=== PATIENT | female | born 1955 | race Caucasian/White ===

== ENCOUNTER 2019-04-15 11:00 | Inpatient (IN) | payer SELFPAY ==
[2019-04-15] VITALS (13 sets, daily range): BP systolic 75–110; BP diastolic 46–73
[~2019-04-15] VITALS: Ht 160 cm; Wt 71.7 kg
[2019-04-15] MEDS ORDERED: NALOXONE 0.4 MG/ML VIAL. IV PRN (13:45)
[2019-04-15] MEDS: MIDAZOLAM HCL 50 MG in IV NORMAL SALINE 50ML 50 ML IV PRN ×2 (13:57→16:23)
--- NOTE | 2019-04-15 13:59 | PDOC ---
PULMONARY PROGRESS NOTES Vitals Vital Signs Date Time Temp Pulse Resp B/P (MAP) Pulse Ox O2 Delivery O2 Flow Rate FiO2 04/15/19 13:15 100 Ventilator Impression . FULL NOTE DICTATED SEE ODERS RESP FAILURE/AECOPD/PNEUMONIA MILY DURAN MD Apr 15, 2019 13:59
[2019-04-15] MEDS: IV NORMAL SALINE 1000ML BAG 1,000 ML IV SCH (14:06)
--- NOTE | 2019-04-15 14:12 | CONS ---
DATE OF CONSULTATION: 04/15/2019 ATTENDING PHYSICIAN: Gamal Leone MD REASON FOR CONSULTATION: The patient seen in pulmonary consultation at the request of Dr. Leone for respiratory failure, vent management. HISTORY OF PRESENT ILLNESS: The patient is a 63-year-old that presented to [facility], admitted. She was complaining of shortness of breath over the last several days. She is a smoker, smoking half a pack of cigarettes a day, was brought in through the Emergency Room with saturations on room air of 79%. She had a chest x-ray done, revealing basilar airspace opacities. She had an arterial blood gas; pH of 7.32, PaCO2 of 59, pO2 of 65. The patient was admitted to the intensive care unit initially on BiPAP, failed BiPAP. She was intubated. She is now transferred to [place] for further evaluation and management. She is currently on assist control ventilation. She is sedated. PAST MEDICAL HISTORY: Obtained from the current documentation from [facility]. Apparently, she has not seen a doctor for many years. I presume she has underlying COPD. PAST SURGICAL HISTORY: Tubal ligation. FAMILY HISTORY: Unknown. SOCIAL HISTORY: She lives on her own, continues to smoke. REVIEW OF SYSTEMS: Unobtainable secondary to the patient's condition. PHYSICAL EXAMINATION: VITAL SIGNS: Stable. O2 saturation was greater than 92%. HEENT: Eyes: The sclerae were nonicteric. NECK: Jugular venous distention was not elevated. No lymphadenopathy. CHEST: Full expansion. LUNGS: Coarse breath sounds, expiratory wheeze. CARDIOVASCULAR: Regular rate and rhythm with S1, S2, no S3. ABDOMEN: Soft, nontender, nondistended. EXTREMITIES: No clubbing, cyanosis or edema. NEUROLOGIC: The patient was sedated on assist control ventilation. LABORATORY DATA: Chest x-ray from [facility] revealed basilar airspace opacities. White count was 10,000, hemoglobin and hematocrit were noted. Sodium was 140, potassium 4.3, glucose was noted. BNP was 356. IMPRESSION: 1. Acute hypoxemic respiratory failure. 2. Acute exacerbation of chronic obstructive pulmonary disease. 3. Pneumonia, suspect gram-negative, possibly gram-positive. 4. Tobacco dependence. PLAN: 1. Continue current support with assist control ventilation. 2. A.m. ABG and chest x-ray. 3. Solu-Medrol. 4. IV antibiotics. 5. Follow clinical course and make adjustments appropriately. MILY DURAN MD DR: GILL/rajinder JOB#: [id number] / [id number]
--- NOTE | 2019-04-15 14:45 | NUR ---
Patient arrived on unit at 1315, transferred from [facility] via EMS. Patient not adequately sedated, order received for Fentanyl and Versed gtt's from Dr. Robledo. [facility] RN, Cyn- who gave report, stated that the family was notified of patient's transfer to [facility]. Alva catheter, PIV's present upon admission. Patient sedated at this time, belongings in room. See assessments, VS.
[2019-04-15 15:28] LABS: BASE EXCESS ABG -1 mmol/L (-3-3); HCO3 ABG 25 mmol/L (21-28); PCO2 ABG 44 mmHg (35-46); PO2 ABG 150 mmHg (65-108); SAT O2 ABG 99 % (92-99)
[2019-04-15 15:29] LABS: FIO2 ABG 50
[2019-04-15] MEDS: IPRATRPIUM/ALBUTEROL 0.5/2.5MG 3 ML NEBU. NEB SCH (20:07)
[2019-04-16] VITALS (30 sets, daily range): BP systolic 74–138; BP diastolic 49–100
[2019-04-16] MEDS: MIDAZOLAM HCL 50 MG in IV NORMAL SALINE 50ML 50 ML IV PRN ×2 (00:05→14:40)
--- NOTE | 2019-04-16 06:33 | RAD ---
Exam: Chest one view INDICATION: Intubated TECHNIQUE: Frontal view of the chest Comparisons: None FINDINGS: Endotracheal tube with tip approximately 4 cm above the yesy. Enteric tube traverses below the diaphragm, distal extent not visualized. The cardiomediastinal silhouette and pulmonary vessels are within normal limits. The lung and pleural spaces are clear. IMPRESSION: Lines and tubes described above. Electronically signed by: Dain Tellez MD (04/16/2019 6:30 AM) [facility]
[2019-04-16] MEDS: IPRATRPIUM/ALBUTEROL 0.5/2.5MG 3 ML NEBU. NEB SCH ×4 (07:47→19:49)
[2019-04-16] MEDS ORDERED: NOREPINEPHRINE VIAL 8 MG in IV DEXTROSE 5% 250 ML IV PRN (08:00)
[2019-04-16] MEDS ORDERED: IV NORMAL SALINE 1000ML BAG 1,000 ML IV ONE ×2 (08:00)
[2019-04-16] MEDS: IV NORMAL SALINE 1000ML BAG 1,000 ML IV SCH ×5 (08:00→18:00)
[2019-04-16 08:03] LABS: BASE EXCESS ABG -5 mmol/L (-3-3); HCO3 ABG 20 mmol/L (21-28); PCO2 ABG 37 mmHg (35-46); PO2 ABG 151 mmHg (65-108); SAT O2 ABG 99 % (92-99)
[2019-04-16] MEDS: AZITHROMYCIN 250 MG TABLET. PO SCH (09:00)
--- NOTE | 2019-04-16 09:29 | RAD ---
EXAM: Chest, single view. HISTORY: Central line placement. COMPARISON: 04/16/2019 FINDINGS: A frontal view of the chest is obtained. There is no infiltrate, pleural effusion or pneumothorax. The heart is normal in size. There is an endotracheal tube within the mid trachea. There is a nasogastric tube within the stomach. The side-port is likely at the gastroesophageal junction. There is a right internal jugular catheter with the tip in the superior cavoatrial junction. IMPRESSION: 1. Interval placement of a right internal jugular catheter with the tip in the superior cavoatrial junction. 2. Nasogastric tube within the proximal stomach. The side-port appears to be at or near the gastroesophageal junction. There is an endotracheal tube in expected position. Electronically signed by: Airam Padilla MD (04/16/2019 9:26 AM) [facility]
[2019-04-16 09:31] LABS: FIO2 ABG 40
--- NOTE | 2019-04-16 09:56 | PDOC ---
PULMONARY PROGRESS NOTES Subjective remains intubated/ sedated AC mode Vitals Vital Signs Date Time Temp Pulse Resp B/P (MAP) Pulse Ox O2 Delivery O2 Flow Rate FiO2 04/16/19 07:47 99 Ventilator 04/16/19 06:00 90 18 95/76 (82) 04/16/19 04:00 98.9 98.9 Lungs: Wheezing (diffuse) Cardiovascular: S1 Abdomen: Soft Extremities: No Edema Skin: Warm Labs Laboratory Tests Test 04/15/19 15:20 04/15/19 20:45 04/16/19 08:00 O2 Saturation 99 % (92-99) 99 % (92-99) Arterial Blood pH 7.36 (7.35-7.45) 7.35 (7.35-7.45) Arterial Blood pCO2 at Patient Temp 44 mmHg (35-46) 37 mmHg (35-46) Arterial Blood pO2 at Patient Temp 150 mmHg (65-108) 151 mmHg (65-108) Arterial Blood HCO3 25 mmol/L (21-28) 20 mmol/L (21-28) Arterial Blood Base Excess -1 mmol/L (-3-3) -5 mmol/L (-3-3) FiO2 50 40 Lactic Acid Level 1.1 mmol/L (0.4-2.0) Laboratory Tests Test 04/15/19 15:20 04/15/19 20:45 04/16/19 08:00 O2 Saturation 99 % (92-99) 99 % (92-99) Arterial Blood pH 7.36 (7.35-7.45) 7.35 (7.35-7.45) Arterial Blood pCO2 at Patient Temp 44 mmHg (35-46) 37 mmHg (35-46) Arterial Blood pO2 at Patient Temp 150 mmHg (65-108) 151 mmHg (65-108) Arterial Blood HCO3 25 mmol/L (21-28) 20 mmol/L (21-28) Arterial Blood Base Excess -1 mmol/L (-3-3) -5 mmol/L (-3-3) FiO2 50 40 Lactic Acid Level 1.1 mmol/L (0.4-2.0) Comments CXR CLEAR Impression . 1. Acute hypoxemic respiratory failure due to AECOPD 2. Acute exacerbation of chronic obstructive pulmonary disease. 3. Clinical Pneumonia, suspect gram-negative, possibly gram-positive. 4. Tobacco dependence. Plan . 1. Continue current support with assist control ventilation. 2. A.m. ABG and chest x-ray. 3. Solu-Medrol. 4. IV antibiotics. 5. increase nebs q 4hr, add pulmicort not ready to wean till wheezing improve DENISE LEDESMA MD Apr 16, 2019 09:56
[2019-04-16] MEDS: BUDESONIDE 0.5 MG/2 ML NEBU. NEB SCH ×2 (10:00→19:49)
[2019-04-16 10:49] LABS: HEMATOCRIT 37.9 % (36.0-47.0); HEMOGLOBIN 12.3 g/dL (12.0-15.5); RED BLOOD COUNT 3.61 x10^6/uL (3.50-5.40); RED CELL DISTRIBUTION WIDTH 14.4 % (11.5-14.5); WHITE BLOOD COUNT 12.3 x10^3/uL (4.0-11.0)
[2019-04-16 11:20] LABS: ALBUMIN 2.7 g/dL (3.4-5.0); ALBUMIN/GLOBULIN RATIO 0.9 (1.0-1.7); CALCIUM 7.9 mg/dL (8.5-10.1); CREATININE 1.1 mg/dL (0.6-1.0); GFR 50.5; POTASSIUM 4.1 mmol/L (3.5-5.1); TOTAL BILIRUBIN 0.3 mg/dL (0.2-1.0); TOTAL PROTEIN 5.7 g/dL (6.4-8.2)
--- NOTE | 2019-04-16 11:38 | HP ---
ADMIT DATE: 04/16/2019 HISTORY OF PRESENT ILLNESS: The patient is a 63-year-old female patient, who came to the Emergency Room of [facility] with a complaint of shortness of breath that has been going on for a while. Her symptoms improved when she gets her friend's inhaler. She is a smoker, smoking between half a pack to a pack a day. She denied any chest pain or palpitation. She was brought to the Emergency Room by emergency medical service personnel and was given DuoNeb en route. Her oxygen saturation was only 79% on room air, it improved with supplemental oxygen. The patient denied any swelling of the legs. Denied any orthopnea or paroxysmal nocturnal dyspnea. She has had a chest x-ray done, which showed that there is bibasilar lung airspace opacities, likely atelectasis or infiltrate. Costophrenic angles are clear and well demarcated. Her blood gas on admission showed that her pH was 7.32, pCO2 of 59, pO2 of 65, bicarbonate 30. The patient was given Solu-Medrol as well as nebulized albuterol and Atrovent. She was admitted to the ICU where she was continued on BiPAP. Unfortunately, her blood gas repeated early in the morning showed a pH of 7.37, pCO2 of 73, pO2 of 62, bicarbonate 34 and oxygen saturation was ____%. We repeated them again at 06:00 and she continued basically to worsen and therefore, a decision was made to intubate her and she was actually successfully intubated. The endotracheal tube placement was confirmed by clinical examination by capnography and a chest x-ray showed me the tip of the endotracheal tube was above the yesy and was transferred to [facility] ICU to continue mechanical ventilation, antibiotics and steroids as well as bronchodilators and to consult the leadership coach. PAST MEDICAL HISTORY: Unremarkable. Apparently, she has not seen a doctor for years. PAST SURGICAL HISTORY: Significant for tubal ligation. FAMILY HISTORY: Noncontributory. SOCIAL HISTORY: She apparently lives on her own. Her daughter comes and see her every once in a while, brings her food. She continues to smoke; however, she does not drink alcohol or use any recreational drugs. REVIEW OF SYSTEMS: Unobtainable. PHYSICAL EXAMINATION: GENERAL: On examining her on arrival to the Emergency Room there, the patient showed no pallor, jaundice, cyanosis. No lymphadenopathy, no thyromegaly. No jugular venous distension, no limb edema. VITAL SIGNS: Her heart rate was slightly high at 123, blood pressure was 118/80, temperature was 98.2, respiratory rate was 38 and oxygen saturation was 95% on 6 liters of oxygen. HEAD, EYES, EARS, NOSE AND THROAT: Showed normocephalic, atraumatic. NECK: Supple. HEART: Showed normal first and second heart sounds. No gallop or murmur. CHEST: Showed decreased breath sounds bilaterally, but without any wheezing or crepitation. ABDOMEN: Distended, soft, nontender. LABORATORY DATA: As I stated, she was extensively investigated there. Her EKG showed that she has sinus tachycardia with a heart rate of 112 beats per minute with a corrected QT interval of 507 milliseconds, no ST segment elevation. Her chest x-ray showed she has mild bibasilar lung airspace opacities, likely atelectasis or infiltrate. ASSESSMENT AND PLAN: The patient was basically admitted to the ICU, started on BiPAP; however, her blood gas continued to deteriorate, such that she intubated her and mechanically ventilated. When I examined her, she was resting flat in bed, in no apparent distress. She continued to be intubated, mechanically ventilated and sedated. ____ PHYSICAL EXAMINATION: GENERAL: There was no pallor, jaundice, cyanosis or thyromegaly. No jugular venous distension. No lower limb edema. VITAL SIGNS: Her heart rate was 90, blood pressure was 95/76, temperature was 98.9, respiratory rate was 18, and oxygen saturation was 100% on FiO2 of 40%. HEAD, EYES, EARS, NOSE, AND THROAT: Showed normocephalic, atraumatic. She has orotracheal and orogastric tube in place. NECK: Supple. HEART: Showed normal first and second heart sounds. No gallop or murmur CHEST: Showed central trachea, equally reduced expansion, reduced air entry with marked expiratory and inspiratory wheezing. ABDOMEN: Slightly distended, soft, nontender. NEUROLOGIC: She is heavily sedated. EXTREMITIES: She moves all extremities spontaneously. LABORATORY DATA: Her lab work this morning showed a pH of 7.36, pCO2 of 44, pO2 of 150, bicarbonate 25, and oxygen saturation was 99% on FiO2 of 40%. Lactic acid was 1.1. IMPRESSION: In summary, this is a 63-year-old female patient, who came in with: 1. Acute hypoxic hypercapnic respiratory failure, requiring eventual intubation and mechanical ventilation. 2. Chronic obstructive pulmonary disease exacerbation. 3. Probably community-acquired pneumonia. PLAN: To continue mechanical ventilation and wean as tolerated. Continue with IV antibiotic. Continue with IV Solu-Medrol as well as nebulized albuterol and Atrovent. Continue with sedation with Versed and propofol. We will consult the leadership coach and decide on further management accordingly. MELANI SANTOS MD DR: JOSEPH/rajinder JOB#: [id number] / [id number]
[2019-04-16] MEDS: methylPREDNISolone SOD SUCC PF 40 MG/ML VIAL. IV SCH ×3 (11:58→18:00)
[2019-04-16] MEDS: cefTRIAXone IV Push 1 GM VIAL. IVP SCH (12:01)
[2019-04-16] MEDS ORDERED: PROPOFOL 100 ML IV ONE (13:58)
--- NOTE | 2019-04-16 16:23 | NUR ---
SS following for discharge planning. SS reviewed pt chart. Pt is self pay pt. HCFS following for self pay status. Pt is from home and is currently on the vent. SS will continue to follow for discharge planning.
[2019-04-17] VITALS (24 sets, daily range): BP systolic 97–168; BP diastolic 56–104
[2019-04-17] MEDS: IPRATRPIUM/ALBUTEROL 0.5/2.5MG 3 ML NEBU. NEB SCH ×7 (00:08→23:55)
[2019-04-17] MEDS: methylPREDNISolone SOD SUCC PF 40 MG/ML VIAL. IV SCH ×5 (00:09→23:59)
[2019-04-17] MEDS: MIDAZOLAM HCL 50 MG in IV NORMAL SALINE 50ML 50 ML IV PRN (00:31)
[2019-04-17] MEDS: IV NORMAL SALINE 1000ML BAG 1,000 ML IV SCH ×3 (05:52→17:47)
[2019-04-17 06:16] LABS: ALBUMIN 2.5 g/dL (3.4-5.0); ALBUMIN/GLOBULIN RATIO 0.7 (1.0-1.7); CALCIUM 8.1 mg/dL (8.5-10.1); CREATININE 0.8 mg/dL (0.6-1.0); GFR 72.9; POTASSIUM 4.2 mmol/L (3.5-5.1); TOTAL BILIRUBIN 0.4 mg/dL (0.2-1.0); TOTAL PROTEIN 5.9 g/dL (6.4-8.2)
[2019-04-17 06:21] LABS: HEMATOCRIT 36.5 % (36.0-47.0); HEMOGLOBIN 12.2 g/dL (12.0-15.5); RED BLOOD COUNT 3.49 x10^6/uL (3.50-5.40); RED CELL DISTRIBUTION WIDTH 14.5 % (11.5-14.5); WHITE BLOOD COUNT 9.3 x10^3/uL (4.0-11.0)
[2019-04-17] MEDS: BUDESONIDE 0.5 MG/2 ML NEBU. NEB SCH ×2 (07:46→19:38)
[2019-04-17 07:59] LABS: BASE EXCESS ABG -3 mmol/L (-3-3); HCO3 ABG 22 mmol/L (21-28); PCO2 ABG 40 mmHg (35-46); PO2 ABG 102 mmHg (65-108); SAT O2 ABG 97 % (92-99)
[2019-04-17 08:01] LABS: FIO2 ABG 35
[2019-04-17] MEDS: cefTRIAXone IV Push 1 GM VIAL. IVP SCH (08:03)
--- NOTE | 2019-04-17 08:05 | RAD ---
EXAM: CHEST ONE VIEW. HISTORY: Respiratory failure, intubated. COMPARISON: 04/16/2019. FINDINGS: A frontal view of the chest is obtained. An endotracheal tube has its tip 6.5 cm above the yesy. A nasogastric tube has its tip below the inferior margin of the view. The lungs are expanded to the 11th posterior interspaces. There are no confluent infiltrates. An opacity in the right cardiophrenic angle is likely a fat pad. There is no pneumothorax or pleural effusion. The heart is not enlarged. IMPRESSION: 1. Hyperinflation. Correlate for air trapping. No confluent infiltrates. Electronically signed by: Mychal Noble MD (04/17/2019 8:02 AM) [facility]
[2019-04-17] MEDS: AZITHROMYCIN 250 MG TABLET. PO SCH (08:18)
--- NOTE | 2019-04-17 10:58 | PN ---
DATE: 04/17/2019 SUBJECTIVE: The patient continued to be intubated and mechanically ventilated. She continued to be on Levophed and her sedation was just now turned off. She is maintaining her oxygen saturation at 100% on FiO2 of 35%. PHYSICAL EXAMINATION: GENERAL: When I examined her, she looked somewhat pale. No jaundice, cyanosis, or thyromegaly. No jugular venous distension. No lower limb edema. VITAL SIGNS: Her heart rate was 65, blood pressure was 137/76, her temperature was 98.6, respiratory rate was 16, and oxygen saturation was 98%. HEAD, EYES, EARS, NOSE AND THROAT: Showed normocephalic, atraumatic. She has orotracheal and orogastric tube in place. NECK: Supple. HEART: Showed normal first and second heart sounds with no gallop, rub or murmur. CHEST: Showed central trachea, equal bilateral chest expansion, air entry with vesicular breath sounds with wheezing bilaterally though much less than yesterday. ABDOMEN: Slightly distended, soft, nontender. NEUROLOGIC: She was sedated. Her intake and output are incompletely recorded. LABORATORY DATA: Her lab work this morning showed a white cell count 9300, hemoglobin 12.2, hematocrit 36, MCV 104 and platelet count 102,000. Her chemistry showed a serum sodium 142, potassium 4.2, chloride 110, bicarbonate 27, anion gap of 5, BUN 27, creatinine 0.8, estimated GFR was 73 mL per minute. Her glucose was 124, calcium was 8.1. Total bilirubin, AST, ALT, alkaline phosphatase were normal. Total protein was 5.9, albumin was 2.5. Her blood gases this morning showed a pH of 7.37, pCO2 of 40, pO2 of 102, bicarbonate was 22 and oxygen saturation was 97% on FiO2 of 35%. ASSESSMENT: 1. Acute hypoxic hypercapnic respiratory failure for which she required intubation and mechanical ventilation. 2. Chronic obstructive pulmonary disease exacerbation. 3. Probably community-acquired pneumonia. 4. Tobacco use disorder. PLAN: To continue mechanical ventilation, wean as tolerated. Continue with IV antibiotic. Continue with IV Solu-Medrol as well as nebulized albuterol and Atrovent. She continues to be on Levophed; however, her sedation is turned off and she might be considered to weaning trial today. MELANI SANTOS MD DR: Sagar JOB#: [id number] / [id number]
--- NOTE | 2019-04-17 12:41 | PDOC ---
PULMONARY PROGRESS NOTES Subjective remains intubated/ sedated AC mode Vitals Vital Signs Date Time Temp Pulse Resp B/P (MAP) Pulse Ox O2 Delivery O2 Flow Rate FiO2 04/17/19 11:00 97 18 135/79 (97) 95 Ventilator 04/17/19 08:00 98.5 98.5 Lungs: Wheezing (diffuse) Cardiovascular: S1 Abdomen: Soft Extremities: No Edema Skin: Warm Labs Laboratory Tests Test 04/15/19 15:20 04/15/19 20:45 04/16/19 08:00 04/16/19 10:30 O2 Saturation 99 % (92-99) 99 % (92-99) Arterial Blood pH 7.36 (7.35-7.45) 7.35 (7.35-7.45) Arterial Blood pCO2 at Patient Temp 44 mmHg (35-46) 37 mmHg (35-46) Arterial Blood pO2 at Patient Temp 150 mmHg (65-108) 151 mmHg (65-108) Arterial Blood HCO3 25 mmol/L (21-28) 20 mmol/L (21-28) Arterial Blood Base Excess -1 mmol/L (-3-3) -5 mmol/L (-3-3) FiO2 50 40 Lactic Acid Level 1.1 mmol/L (0.4-2.0) White Blood Count 12.3 x10^3/uL (4.0-11.0) Red Blood Count 3.61 x10^6/uL (3.50-5.40) Hemoglobin 12.3 g/dL (12.0-15.5) Hematocrit 37.9 % (36.0-47.0) Mean Corpuscular Volume 105 fL (79-100) Mean Corpuscular Hemoglobin 34 pg (25-35) Mean Corpuscular Hemoglobin Concent 32 g/dL (31-37) Red Cell Distribution Width 14.4 % (11.5-14.5) Platelet Count 194 x10^3/uL (140-400) Sodium Level 142 mmol/L (136-145) Potassium Level 4.1 mmol/L (3.5-5.1) Chloride Level 109 mmol/L (98-107) Carbon Dioxide Level 27 mmol/L (21-32) Anion Gap 6 (6-14) Blood Urea Nitrogen 32 mg/dL (7-20) Creatinine 1.1 mg/dL (0.6-1.0) Estimated GFR (Cockcroft-Gault) 50.5 BUN/Creatinine Ratio 29 (6-20) Glucose Level 96 mg/dL (70-99) Calcium Level 7.9 mg/dL (8.5-10.1) Total Bilirubin 0.3 mg/dL (0.2-1.0) Aspartate Amino Transf (AST/SGOT) 15 U/L (15-37) Alanine Aminotransferase (ALT/SGPT) 14 U/L (14-59) Alkaline Phosphatase 55 U/L (46-116) Total Protein 5.7 g/dL (6.4-8.2) Albumin 2.7 g/dL (3.4-5.0) Albumin/Globulin Ratio 0.9 (1.0-1.7) Test 04/17/19 00:07 04/17/19 05:45 04/17/19 05:49 04/17/19 07:59 Glucose (Fingerstick) 97 mg/dL (70-99) 114 mg/dL (70-99) White Blood Count 9.3 x10^3/uL (4.0-11.0) Red Blood Count 3.49 x10^6/uL (3.50-5.40) Hemoglobin 12.2 g/dL (12.0-15.5) Hematocrit 36.5 % (36.0-47.0) Mean Corpuscular Volume 104 fL (79-100) Mean Corpuscular Hemoglobin 35 pg (25-35) Mean Corpuscular Hemoglobin Concent 33 g/dL (31-37) Red Cell Distribution Width 14.5 % (11.5-14.5) Platelet Count 182 x10^3/uL (140-400) Sodium Level 142 mmol/L (136-145) Potassium Level 4.2 mmol/L (3.5-5.1) Chloride Level 110 mmol/L (98-107) Carbon Dioxide Level 27 mmol/L (21-32) Anion Gap 5 (6-14) Blood Urea Nitrogen 27 mg/dL (7-20) Creatinine 0.8 mg/dL (0.6-1.0) Estimated GFR (Cockcroft-Gault) 72.9 BUN/Creatinine Ratio 34 (6-20) Glucose Level 124 mg/dL (70-99) Calcium Level 8.1 mg/dL (8.5-10.1) Total Bilirubin 0.4 mg/dL (0.2-1.0) Aspartate Amino Transf (AST/SGOT) 13 U/L (15-37) Alanine Aminotransferase (ALT/SGPT) 12 U/L (14-59) Alkaline Phosphatase 55 U/L (46-116) Total Protein 5.9 g/dL (6.4-8.2) Albumin 2.5 g/dL (3.4-5.0) Albumin/Globulin Ratio 0.7 (1.0-1.7) O2 Saturation 97 % (92-99) Arterial Blood pH 7.37 (7.35-7.45) Arterial Blood pCO2 at Patient Temp 40 mmHg (35-46) Arterial Blood pO2 at Patient Temp 102 mmHg (65-108) Arterial Blood HCO3 22 mmol/L (21-28) Arterial Blood Base Excess -3 mmol/L (-3-3) FiO2 35 Laboratory Tests Test 04/17/19 00:07 04/17/19 05:45 04/17/19 05:49 04/17/19 07:59 Glucose (Fingerstick) 97 mg/dL (70-99) 114 mg/dL (70-99) White Blood Count 9.3 x10^3/uL (4.0-11.0) Red Blood Count 3.49 x10^6/uL (3.50-5.40) Hemoglobin 12.2 g/dL (12.0-15.5) Hematocrit 36.5 % (36.0-47.0) Mean Corpuscular Volume 104 fL (79-100) Mean Corpuscular Hemoglobin 35 pg (25-35) Mean Corpuscular Hemoglobin Concent 33 g/dL (31-37) Red Cell Distribution Width 14.5 % (11.5-14.5) Platelet Count 182 x10^3/uL (140-400) Sodium Level 142 mmol/L (136-145) Potassium Level 4.2 mmol/L (3.5-5.1) Chloride Level 110 mmol/L (98-107) Carbon Dioxide Level 27 mmol/L (21-32) Anion Gap 5 (6-14) Blood Urea Nitrogen 27 mg/dL (7-20) Creatinine 0.8 mg/dL (0.6-1.0) Estimated GFR (Cockcroft-Gault) 72.9 BUN/Creatinine Ratio 34 (6-20) Glucose Level 124 mg/dL (70-99) Calcium Level 8.1 mg/dL (8.5-10.1) Total Bilirubin 0.4 mg/dL (0.2-1.0) Aspartate Amino Transf (AST/SGOT) 13 U/L (15-37) Alanine Aminotransferase (ALT/SGPT) 12 U/L (14-59) Alkaline Phosphatase 55 U/L (46-116) Total Protein 5.9 g/dL (6.4-8.2) Albumin 2.5 g/dL (3.4-5.0) Albumin/Globulin Ratio 0.7 (1.0-1.7) O2 Saturation 97 % (92-99) Arterial Blood pH 7.37 (7.35-7.45) Arterial Blood pCO2 at Patient Temp 40 mmHg (35-46) Arterial Blood pO2 at Patient Temp 102 mmHg (65-108) Arterial Blood HCO3 22 mmol/L (21-28) Arterial Blood Base Excess -3 mmol/L (-3-3) FiO2 35 Medications Active Scripts Medications Dose Route/Sig Max Daily Dose Days Date Category No Known Medications Prior To Admisstion (Info) Each 1 Each 1X PRN 04/17/19 Reported Comments CXR CLEAR Impression . 1. Acute hypoxemic respiratory failure due to AECOPD 2. Acute exacerbation of chronic obstructive pulmonary disease. 3. Clinical Pneumonia, suspect gram-negative, possibly gram-positive. 4. Tobacco dependence. Plan . 1. Continue current support with assist control ventilation. wheezing resolved 2. will dc sedation and start CPAP trial once awake 3. Solu-Medrol. 4. IV antibiotics. 5. nebs q 4hr, pulmicort 6. TF 7. DVT/ Stress ulcer prophDENISE Tilley MD Apr 17, 2019 12:41
[2019-04-17 13:08] LABS: BASE EXCESS ABG -2 mmol/L (-3-3); HCO3 ABG 25 mmol/L (21-28); PCO2 ABG 50 mmHg (35-46); PO2 ABG 73 mmHg (65-108); SAT O2 ABG 94 % (92-99)
[2019-04-17 13:26] LABS: FIO2 ABG 35
[2019-04-17] MEDS ORDERED: PROPOFOL 100 ML IV PRN (13:45)
[2019-04-17] MEDS: ENOXAPARIN 40 MG/0.4 ML SYRINGE. SQ SCH (13:51)
[2019-04-17 17:11] LABS: BASE EXCESS ABG -2 mmol/L (-3-3); HCO3 ABG 25 mmol/L (21-28); PCO2 ABG 52 mmHg (35-46); PO2 ABG 100 mmHg (65-108); SAT O2 ABG 97 % (92-99)
[2019-04-17 17:17] LABS: FIO2 ABG 40% BIPAP
--- NOTE | 2019-04-17 19:00 | NUR ---
EOSS patient extubated self placed on bi-pap abg called to Dr. Diaz changes made per bi-pap will repeat abg around 1924, patient confused,pulling on bipap, mitts remain on. encouraged not to pull on mask.will moniter closely.
[2019-04-17 19:35] LABS: BASE EXCESS ABG -2 mmol/L (-3-3); HCO3 ABG 25 mmol/L (21-28); PCO2 ABG 53 mmHg (35-46); PO2 ABG 73 mmHg (65-108); SAT O2 ABG 93 % (92-99)
[2019-04-17 19:39] LABS: FIO2 ABG 30
[2019-04-17] MEDS ORDERED: ATROPINE 0.5 MG/5 ML DISP.SYRINGE. IV PRN (19:45)
[2019-04-17] MEDS ORDERED: IV NORMAL SALINE 500ML BAG 500 ML IV PRN (19:45)
[2019-04-17] MEDS ORDERED: SODIUM BICARB ADULT 8.4% 50 MEQ/50 ML DISP.SYRIN. IV ONE (19:45)
[2019-04-17] MEDS: DEXMEDETOMIDINE 400 MCG in IV NORMAL SALINE 100ML 96 ML IV PRN (20:03)
[2019-04-17] MEDS: FAMOTIDINE 20 MG/2 ML VIAL IVP SCH (20:38)
[2019-04-18] VITALS (24 sets, daily range): BP systolic 140–171; BP diastolic 86–115
[2019-04-18] MEDS: IV NORMAL SALINE 1000ML BAG 1,000 ML IV SCH ×5 (02:07→21:38)
[2019-04-18] MEDS ORDERED: HALOPERIDOL LACTATE 5 MG/ML VIAL. IVP PRN ×2 (04:00→04:15)
[2019-04-18] MEDS: IPRATRPIUM/ALBUTEROL 0.5/2.5MG 3 ML NEBU. NEB SCH ×5 (04:35→20:51)
[2019-04-18] MEDS: methylPREDNISolone SOD SUCC PF 40 MG/ML VIAL. IV SCH ×3 (05:53→17:23)
[2019-04-18] MEDS: HALOPERIDOL LACTATE 5 MG/ML VIAL. IVP PRN ×3 (06:01→21:38)
[2019-04-18 06:24] LABS: HEMATOCRIT 36.8 % (36.0-47.0); HEMOGLOBIN 12.4 g/dL (12.0-15.5); RED BLOOD COUNT 3.56 x10^6/uL (3.50-5.40); RED CELL DISTRIBUTION WIDTH 14.3 % (11.5-14.5); WHITE BLOOD COUNT 8.6 x10^3/uL (4.0-11.0)
--- NOTE | 2019-04-18 06:36 | RAD ---
Exam: Chest one view INDICATION: Respiratory failure TECHNIQUE: Frontal view of chest Comparisons: 04/17/2019 FINDINGS: Right IJ catheter with tip in the SVC. The cardiomediastinal silhouette and pulmonary vessels are within normal limits. The lung and pleural spaces are clear. IMPRESSION: No acute cardiopulmonary process. Electronically signed by: Dain Tellez MD (04/18/2019 6:33 AM) [facility]
[2019-04-18 06:42] LABS: ALBUMIN 2.8 g/dL (3.4-5.0); ALBUMIN/GLOBULIN RATIO 0.8 (1.0-1.7); CALCIUM 8.3 mg/dL (8.5-10.1); CREATININE 0.8 mg/dL (0.6-1.0); GFR 72.9; TOTAL BILIRUBIN 0.5 mg/dL (0.2-1.0); TOTAL PROTEIN 6.4 g/dL (6.4-8.2)
[2019-04-18] MEDS: BUDESONIDE 0.5 MG/2 ML NEBU. NEB SCH ×2 (07:36→20:52)
[2019-04-18 07:59] LABS: BASE EXCESS ABG -2 mmol/L (-3-3); HCO3 ABG 24 mmol/L (21-28); PCO2 ABG 46 mmHg (35-46); PO2 ABG 89 mmHg (65-108); SAT O2 ABG 96 % (92-99)
[2019-04-18 08:00] LABS: FIO2 ABG 30
[2019-04-18] MEDS: cefTRIAXone IV Push 1 GM VIAL. IVP SCH (08:21)
[2019-04-18] MEDS ORDERED: OLANZapine IM 10 MG VIAL. IM ONE (08:30)
[2019-04-18] MEDS: AZITHROMYCIN 250 MG TABLET. PO SCH (09:00)
[2019-04-18] MEDS: ALBUTEROL SULFATE 2.5 MG/3 ML NEBU. NEB PRN (10:00)
--- NOTE | 2019-04-18 10:29 | PN ---
DATE: 04/18/2019 SUBJECTIVE: The patient has apparently self-extubated yesterday and has been extremely restless, agitated, for which she was given Haldol. She was apparently on propofol; however, she became bradycardic and therefore, she was given Haldol that was increased this morning. She is now on AVAP maintaining her oxygen saturation at 97% on FiO2 of 30%. PHYSICAL EXAMINATION: GENERAL: When I examined her, she was resting slightly propped up, continued to be somewhat restless, agitated. There was no pallor, jaundice, cyanosis or thyromegaly. No jugular venous distention. No limb edema. VITAL SIGNS: Her heart rate was 100, blood pressure was 161/97, temperature was 97.5, respiratory rate was 25, and oxygen saturation was 96%. HEAD, EYES, EARS, NOSE AND THROAT: Showed normocephalic, atraumatic. NECK: Supple. CARDIAC: Normal first and second heart sounds. No gallop, rub or murmur. CHEST: Clear to auscultation. No crepitation or rhonchi. Chest shows central trachea, equally reduced expansion, reduced air entry, vesicular sounds with few bilateral scattered rhonchi. I could not appreciate any crepitation. ABDOMEN: Distended, soft, nontender. NEUROLOGIC: She has continued to be restless, agitated. Her intake over the last 24 hours was 4700, output was 780. LABORATORY DATA: As of this morning, her white cell count was 8600, hemoglobin 12.4, hematocrit 36.8, MCV 103 and platelet count 155,000. Her serum sodium was 147, potassium 4, chloride 112, bicarbonate 28, anion gap of 7, BUN 30, creatinine was 0.8, estimated GFR was 73 mL per minute. Her blood glucose 146, calcium was 8.3. Total bilirubin, AST, ALT, alkaline phosphatase were normal. Total protein 6.4, albumin 2.8. ASSESSMENT: 1. Acute on chronic hypoxic hypercapnic respiratory failure for which she required intubation, mechanical ventilation; however, the patient has extubated herself yesterday. 2. Chronic obstructive pulmonary disease exacerbation. 3. Probably community-acquired pneumonia. 4. Tobacco use disorder. PLAN: Continue with AVAP. Continue with IV fluid as well as IV Solu-Medrol, nebulized albuterol and Atrovent. MELANI SANTOS MD DR: Sagar JOB#: [id number] / [id number]
[2019-04-18] MEDS: NICOTINE 21MG PATCH. TD SCH (10:50)
--- NOTE | 2019-04-18 11:06 | PDOC ---
PULMONARY PROGRESS NOTES Subjective self extubated 04/17 afternoon required BIPAP , precedex, now off Vitals Vital Signs Date Time Temp Pulse Resp B/P (MAP) Pulse Ox O2 Delivery O2 Flow Rate FiO2 04/18/19 10:19 97 24 142/99 (113) 98 Nasal Cannula 2.0 04/18/19 07:28 97.5 97.5 General: Lethargic Lungs: Wheezing Cardiovascular: S1 Abdomen: Soft Extremities: No Edema Skin: Warm Labs Laboratory Tests Test 04/17/19 00:07 04/17/19 05:45 04/17/19 05:49 04/17/19 07:59 Glucose (Fingerstick) 97 mg/dL (70-99) 114 mg/dL (70-99) White Blood Count 9.3 x10^3/uL (4.0-11.0) Red Blood Count 3.49 x10^6/uL (3.50-5.40) Hemoglobin 12.2 g/dL (12.0-15.5) Hematocrit 36.5 % (36.0-47.0) Mean Corpuscular Volume 104 fL (79-100) Mean Corpuscular Hemoglobin 35 pg (25-35) Mean Corpuscular Hemoglobin Concent 33 g/dL (31-37) Red Cell Distribution Width 14.5 % (11.5-14.5) Platelet Count 182 x10^3/uL (140-400) Sodium Level 142 mmol/L (136-145) Potassium Level 4.2 mmol/L (3.5-5.1) Chloride Level 110 mmol/L (98-107) Carbon Dioxide Level 27 mmol/L (21-32) Anion Gap 5 (6-14) Blood Urea Nitrogen 27 mg/dL (7-20) Creatinine 0.8 mg/dL (0.6-1.0) Estimated GFR (Cockcroft-Gault) 72.9 BUN/Creatinine Ratio 34 (6-20) Glucose Level 124 mg/dL (70-99) Calcium Level 8.1 mg/dL (8.5-10.1) Total Bilirubin 0.4 mg/dL (0.2-1.0) Aspartate Amino Transf (AST/SGOT) 13 U/L (15-37) Alanine Aminotransferase (ALT/SGPT) 12 U/L (14-59) Alkaline Phosphatase 55 U/L (46-116) Total Protein 5.9 g/dL (6.4-8.2) Albumin 2.5 g/dL (3.4-5.0) Albumin/Globulin Ratio 0.7 (1.0-1.7) O2 Saturation 97 % (92-99) Arterial Blood pH 7.37 (7.35-7.45) Arterial Blood pCO2 at Patient Temp 40 mmHg (35-46) Arterial Blood pO2 at Patient Temp 102 mmHg (65-108) Arterial Blood HCO3 22 mmol/L (21-28) Arterial Blood Base Excess -3 mmol/L (-3-3) FiO2 35 Test 04/17/19 12:55 04/17/19 16:46 04/17/19 19:33 04/18/19 06:10 O2 Saturation 94 % (92-99) 97 % (92-99) 93 % (92-99) Arterial Blood pH 7.31 (7.35-7.45) 7.30 (7.35-7.45) 7.29 (7.35-7.45) Arterial Blood pCO2 at Patient Temp 50 mmHg (35-46) 52 mmHg (35-46) 53 mmHg (35-46) Arterial Blood pO2 at Patient Temp 73 mmHg (65-108) 100 mmHg (65-108) 73 mmHg (65-108) Arterial Blood HCO3 25 mmol/L (21-28) 25 mmol/L (21-28) 25 mmol/L (21-28) Arterial Blood Base Excess -2 mmol/L (-3-3) -2 mmol/L (-3-3) -2 mmol/L (-3-3) FiO2 35 40% bipap 30 White Blood Count 8.6 x10^3/uL (4.0-11.0) Red Blood Count 3.56 x10^6/uL (3.50-5.40) Hemoglobin 12.4 g/dL (12.0-15.5) Hematocrit 36.8 % (36.0-47.0) Mean Corpuscular Volume 103 fL (79-100) Mean Corpuscular Hemoglobin 35 pg (25-35) Mean Corpuscular Hemoglobin Concent 34 g/dL (31-37) Red Cell Distribution Width 14.3 % (11.5-14.5) Platelet Count 155 x10^3/uL (140-400) Sodium Level 147 mmol/L (136-145) Potassium Level 4.0 mmol/L (3.5-5.1) Chloride Level 112 mmol/L (98-107) Carbon Dioxide Level 28 mmol/L (21-32) Anion Gap 7 (6-14) Blood Urea Nitrogen 30 mg/dL (7-20) Creatinine 0.8 mg/dL (0.6-1.0) Estimated GFR (Cockcroft-Gault) 72.9 BUN/Creatinine Ratio 38 (6-20) Glucose Level 146 mg/dL (70-99) Calcium Level 8.3 mg/dL (8.5-10.1) Total Bilirubin 0.5 mg/dL (0.2-1.0) Aspartate Amino Transf (AST/SGOT) 25 U/L (15-37) Alanine Aminotransferase (ALT/SGPT) 20 U/L (14-59) Alkaline Phosphatase 61 U/L (46-116) Total Protein 6.4 g/dL (6.4-8.2) Albumin 2.8 g/dL (3.4-5.0) Albumin/Globulin Ratio 0.8 (1.0-1.7) Test 04/18/19 07:50 O2 Saturation 96 % (92-99) Arterial Blood pH 7.34 (7.35-7.45) Arterial Blood pCO2 at Patient Temp 46 mmHg (35-46) Arterial Blood pO2 at Patient Temp 89 mmHg (65-108) Arterial Blood HCO3 24 mmol/L (21-28) Arterial Blood Base Excess -2 mmol/L (-3-3) FiO2 30 Laboratory Tests Test 04/17/19 12:55 04/17/19 16:46 04/17/19 19:33 04/18/19 06:10 O2 Saturation 94 % (92-99) 97 % (92-99) 93 % (92-99) Arterial Blood pH 7.31 (7.35-7.45) 7.30 (7.35-7.45) 7.29 (7.35-7.45) Arterial Blood pCO2 at Patient Temp 50 mmHg (35-46) 52 mmHg (35-46) 53 mmHg (35-46) Arterial Blood pO2 at Patient Temp 73 mmHg (65-108) 100 mmHg (65-108) 73 mmHg (65-108) Arterial Blood HCO3 25 mmol/L (21-28) 25 mmol/L (21-28) 25 mmol/L (21-28) Arterial Blood Base Excess -2 mmol/L (-3-3) -2 mmol/L (-3-3) -2 mmol/L (-3-3) FiO2 35 40% bipap 30 White Blood Count 8.6 x10^3/uL (4.0-11.0) Red Blood Count 3.56 x10^6/uL (3.50-5.40) Hemoglobin 12.4 g/dL (12.0-15.5) Hematocrit 36.8 % (36.0-47.0) Mean Corpuscular Volume 103 fL (79-100) Mean Corpuscular Hemoglobin 35 pg (25-35) Mean Corpuscular Hemoglobin Concent 34 g/dL (31-37) Red Cell Distribution Width 14.3 % (11.5-14.5) Platelet Count 155 x10^3/uL (140-400) Sodium Level 147 mmol/L (136-145) Potassium Level 4.0 mmol/L (3.5-5.1) Chloride Level 112 mmol/L (98-107) Carbon Dioxide Level 28 mmol/L (21-32) Anion Gap 7 (6-14) Blood Urea Nitrogen 30 mg/dL (7-20) Creatinine 0.8 mg/dL (0.6-1.0) Estimated GFR (Cockcroft-Gault) 72.9 BUN/Creatinine Ratio 38 (6-20) Glucose Level 146 mg/dL (70-99) Calcium Level 8.3 mg/dL (8.5-10.1) Total Bilirubin 0.5 mg/dL (0.2-1.0) Aspartate Amino Transf (AST/SGOT) 25 U/L (15-37) Alanine Aminotransferase (ALT/SGPT) 20 U/L (14-59) Alkaline Phosphatase 61 U/L (46-116) Total Protein 6.4 g/dL (6.4-8.2) Albumin 2.8 g/dL (3.4-5.0) Albumin/Globulin Ratio 0.8 (1.0-1.7) Test 04/18/19 07:50 O2 Saturation 96 % (92-99) Arterial Blood pH 7.34 (7.35-7.45) Arterial Blood pCO2 at Patient Temp 46 mmHg (35-46) Arterial Blood pO2 at Patient Temp 89 mmHg (65-108) Arterial Blood HCO3 24 mmol/L (21-28) Arterial Blood Base Excess -2 mmol/L (-3-3) FiO2 30 Medications Active Scripts Medications Dose Route/Sig Max Daily Dose Days Date Category No Known Medications Prior To Admisstion (Info) Each 1 Each MC 1X PRN 04/17/19 Reported Comments CXR 04/18 mild left lung inf Impression . 1. Acute hypoxemic respiratory failure due to AECOPD, self extubated 04/17 2. Acute exacerbation of chronic obstructive pulmonary disease. 3. Clinical Pneumonia, suspect gram-negative, possibly gram-positive. 4. Tobacco dependence. 5. Anxiety disorder Plan . 1. Continue current VM, PRN BIPAP, MENTAL STATUS IMPROVING 2. follow clinically 3. Solu-Medrol. 4. IV antibiotics. 5. nebs q 4hr, pulmicort 6. TF 7. DVT/ Stress ulcer prophy 8. d/w family about advance directives. full code DENISE LEDESMA MD Apr 18, 2019 11:06
[2019-04-18] MEDS: ENOXAPARIN 40 MG/0.4 ML SYRINGE. SQ SCH (11:48)
[2019-04-18] MEDS: DEXMEDETOMIDINE 400 MCG in IV NORMAL SALINE 100ML 96 ML IV PRN ×2 (13:51→19:37)
[2019-04-18 17:27] LABS: BASE EXCESS ABG -3 mmol/L (-3-3); HCO3 ABG 22 mmol/L (21-28); PCO2 ABG 37 mmHg (35-46); PO2 ABG 88 mmHg (65-108); SAT O2 ABG 97 % (92-99)
[2019-04-18 17:31] LABS: FIO2 ABG 30
[2019-04-18] MEDS: FAMOTIDINE 20 MG/2 ML VIAL IVP SCH (21:38)
[2019-04-18] MEDS ORDERED: hydrALAZINE 20 MG/ML VIAL. IVP PRN (23:00)
[2019-04-19] VITALS (22 sets, daily range): BP systolic 116–163; BP diastolic 72–106
[2019-04-19] MEDS: methylPREDNISolone SOD SUCC PF 40 MG/ML VIAL. IV SCH ×4 (00:07→17:10)
[2019-04-19] MEDS: IPRATRPIUM/ALBUTEROL 0.5/2.5MG 3 ML NEBU. NEB SCH ×7 (00:20→23:42)
[2019-04-19] MEDS: HALOPERIDOL LACTATE 5 MG/ML VIAL. IVP PRN ×3 (03:22→21:01)
[2019-04-19] MEDS: DEXMEDETOMIDINE 400 MCG in IV NORMAL SALINE 100ML 96 ML IV PRN ×2 (03:22→17:20)
[2019-04-19 05:53] LABS: CALCIUM 8.3 mg/dL (8.5-10.1); CREATININE 0.7 mg/dL (0.6-1.0); GFR 85.1; POTASSIUM 3.6 mmol/L (3.5-5.1)
[2019-04-19 06:06] LABS: HEMATOCRIT 37.5 % (36.0-47.0); HEMOGLOBIN 12.5 g/dL (12.0-15.5); RED BLOOD COUNT 3.62 x10^6/uL (3.50-5.40); RED CELL DISTRIBUTION WIDTH 14.3 % (11.5-14.5); WHITE BLOOD COUNT 6.9 x10^3/uL (4.0-11.0)
[2019-04-19] MEDS: cefTRIAXone IV Push 1 GM VIAL. IVP SCH (07:52)
[2019-04-19] MEDS: IV NORMAL SALINE 1000ML BAG 1,000 ML IV SCH ×2 (07:52→17:20)
--- NOTE | 2019-04-19 08:07 | RAD ---
PORTABLE CHEST 1V 04/19/2019 9:00 AM INDICATION: Respiratory failure COMPARISON: 04/18/2019 TECHNIQUE: Portable frontal view of the chest is provided. FINDINGS: The cardiomediastinal silhouette is similar in appearance. Right IJ central venous catheter is in similar position. Increased patchy interstitial changes at the medial left lung base may represent subsegmental atelectasis. There are no significant pleural effusions. There is no pulmonary vascular congestion. No pneumothorax. IMPRESSION: Increased patchy interstitial changes at the medial left lung base may represent subsegmental atelectasis. Electronically signed by: Nichelle Eubanks MD (04/19/2019 8:04 AM) [id number]
[2019-04-19] MEDS: BUDESONIDE 0.5 MG/2 ML NEBU. NEB SCH ×2 (08:41→19:42)
[2019-04-19 08:45] LABS: BASE EXCESS ABG -3 mmol/L (-3-3); HCO3 ABG 22 mmol/L (21-28); PCO2 ABG 39 mmHg (35-46); PO2 ABG 99 mmHg (65-108); SAT O2 ABG 97 % (92-99)
[2019-04-19 08:47] LABS: CORRECTED PCO2 ABG 36 mmHg; CORRECTED PO2 ABG 91 mmHg
[2019-04-19 08:50] LABS: FIO2 ABG 30
--- NOTE | 2019-04-19 10:36 | PN ---
DATE: 04/19/2019 SUBJECTIVE: The patient is resting slightly propped up in bed, in no apparent distress. She is awake, alert, responding appropriately. She is off BiPAP, maintaining her oxygen saturation at 99% on 3 liters of oxygen. Nursing staff did not voice any concern and stated that she has an uneventful night. On questioning her, she denied any complaints, in particular denied any chest pain or shortness of breath. PHYSICAL EXAMINATION: GENERAL: When I examined her, she was pale, but no jaundice, cyanosis or thyromegaly. No jugular venous distention. No lower limb edema. VITAL SIGNS: Her heart rate was 67, blood pressure was 137/87, temperature was 97.9, respiratory rate was 20, and oxygen saturation was 98%. HEAD, EYES, EARS, NOSE AND THROAT: Showed normocephalic, atraumatic. NECK: Supple. CARDIAC: Normal first and second heart sounds. No gallop or murmur. CHEST: Shows central trachea, equal bilateral expansion, air entry, vesicular sounds with bilateral scattered rhonchi. I could not appreciate any crepitation. ABDOMEN: Slightly distended, soft, nontender. NEUROLOGIC: She is awake, alert, responding appropriately. All cranial nerves intact. She moves extremities without difficulty. Her intake over the last 24 hours was 2900, output was 1570. LABORATORY DATA: Her lab work this morning showed a white cell count 6900, hemoglobin 12.5, hematocrit 37, MCV 104 and platelet count of 147,000. Her chemistry showed a serum sodium 146, potassium 3.6, chloride 112, bicarbonate 28, anion gap of 6, BUN 29, creatinine 0.7, estimated GFR was 85 mL per minute. Her glucose 155, calcium was 8.3, magnesium was 2.1. Her blood gases this morning showed a pH of 7.4, pCO2 of 39, pO2 of 99, bicarbonate 22 and oxygen saturation was 97% on FiO2 of 30%. ASSESSMENT: 1. Acute on chronic hypoxic hypercapnic respiratory failure for which she was intubated, mechanically ventilated; however, she self-extubated herself. 2. Chronic obstructive pulmonary disease exacerbation. 3. Probable Community-acquired pneumonia. 4. Tobacco use disorder. PLAN: To continue with AVAP as well as oxygen saturation. Continue with IV Solu-Medrol. Continue with nebulized treatment. Start the process of physical and occupational therapy. Consult the Speech Therapy to see whether the patient is safe to eat and drink. MELANI SANTOS MD DR: JOSEPH/rajinder JOB#: [id number] / [id number]
--- NOTE | 2019-04-19 11:55 | PDOC ---
PULMONARY PROGRESS NOTES Subjective self extubated 04/17 afternoon required BIPAP , on cnaula weak, but more alert Vitals Vital Signs Date Time Temp Pulse Resp B/P (MAP) Pulse Ox O2 Delivery O2 Flow Rate FiO2 04/19/19 09:31 99 Nasal Cannula 3.0 04/19/19 06:00 67 20 137/87 (104) 04/19/19 04:00 97.9 97.9 General: Alert Lungs: Wheezing (resolved) Cardiovascular: S1 Abdomen: Soft Extremities: No Edema Skin: Warm Labs Laboratory Tests Test 04/17/19 12:55 04/17/19 16:46 04/17/19 19:33 04/18/19 06:10 O2 Saturation 94 % (92-99) 97 % (92-99) 93 % (92-99) Arterial Blood pH 7.31 (7.35-7.45) 7.30 (7.35-7.45) 7.29 (7.35-7.45) Arterial Blood pCO2 at Patient Temp 50 mmHg (35-46) 52 mmHg (35-46) 53 mmHg (35-46) Arterial Blood pO2 at Patient Temp 73 mmHg (65-108) 100 mmHg (65-108) 73 mmHg (65-108) Arterial Blood HCO3 25 mmol/L (21-28) 25 mmol/L (21-28) 25 mmol/L (21-28) Arterial Blood Base Excess -2 mmol/L (-3-3) -2 mmol/L (-3-3) -2 mmol/L (-3-3) FiO2 35 40% bipap 30 White Blood Count 8.6 x10^3/uL (4.0-11.0) Red Blood Count 3.56 x10^6/uL (3.50-5.40) Hemoglobin 12.4 g/dL (12.0-15.5) Hematocrit 36.8 % (36.0-47.0) Mean Corpuscular Volume 103 fL (79-100) Mean Corpuscular Hemoglobin 35 pg (25-35) Mean Corpuscular Hemoglobin Concent 34 g/dL (31-37) Red Cell Distribution Width 14.3 % (11.5-14.5) Platelet Count 155 x10^3/uL (140-400) Sodium Level 147 mmol/L (136-145) Potassium Level 4.0 mmol/L (3.5-5.1) Chloride Level 112 mmol/L (98-107) Carbon Dioxide Level 28 mmol/L (21-32) Anion Gap 7 (6-14) Blood Urea Nitrogen 30 mg/dL (7-20) Creatinine 0.8 mg/dL (0.6-1.0) Estimated GFR (Cockcroft-Gault) 72.9 BUN/Creatinine Ratio 38 (6-20) Glucose Level 146 mg/dL (70-99) Calcium Level 8.3 mg/dL (8.5-10.1) Total Bilirubin 0.5 mg/dL (0.2-1.0) Aspartate Amino Transf (AST/SGOT) 25 U/L (15-37) Alanine Aminotransferase (ALT/SGPT) 20 U/L (14-59) Alkaline Phosphatase 61 U/L (46-116) Total Protein 6.4 g/dL (6.4-8.2) Albumin 2.8 g/dL (3.4-5.0) Albumin/Globulin Ratio 0.8 (1.0-1.7) Test 04/18/19 07:50 04/18/19 17:20 04/19/19 05:10 04/19/19 05:18 O2 Saturation 96 % (92-99) 97 % (92-99) Arterial Blood pH 7.34 (7.35-7.45) 7.38 (7.35-7.45) Arterial Blood pCO2 at Patient Temp 46 mmHg (35-46) 37 mmHg (35-46) Arterial Blood pO2 at Patient Temp 89 mmHg (65-108) 88 mmHg (65-108) Arterial Blood HCO3 24 mmol/L (21-28) 22 mmol/L (21-28) Arterial Blood Base Excess -2 mmol/L (-3-3) -3 mmol/L (-3-3) FiO2 30 30 White Blood Count 6.9 x10^3/uL (4.0-11.0) Red Blood Count 3.62 x10^6/uL (3.50-5.40) Hemoglobin 12.5 g/dL (12.0-15.5) Hematocrit 37.5 % (36.0-47.0) Mean Corpuscular Volume 104 fL (79-100) Mean Corpuscular Hemoglobin 35 pg (25-35) Mean Corpuscular Hemoglobin Concent 33 g/dL (31-37) Red Cell Distribution Width 14.3 % (11.5-14.5) Platelet Count 147 x10^3/uL (140-400) Sodium Level 146 mmol/L (136-145) Potassium Level 3.6 mmol/L (3.5-5.1) Chloride Level 112 mmol/L (98-107) Carbon Dioxide Level 28 mmol/L (21-32) Anion Gap 6 (6-14) Blood Urea Nitrogen 29 mg/dL (7-20) Creatinine 0.7 mg/dL (0.6-1.0) Estimated GFR (Cockcroft-Gault) 85.1 Glucose Level 155 mg/dL (70-99) Calcium Level 8.3 mg/dL (8.5-10.1) Magnesium Level 2.1 mg/dL (1.8-2.4) Glucose (Fingerstick) 138 mg/dL (70-99) Test 04/19/19 08:35 O2 Saturation 97 % (92-99) Arterial Blood pH 7.38 (7.35-7.45) Arterial Blood pH (Temp corrected) 7.40 Arterial Blood pCO2 at Patient Temp 39 mmHg (35-46) Arterial Blood pCO2 (Temp correct) 36 mmHg Arterial Blood pO2 at Patient Temp 99 mmHg (65-108) Arterial Blood pO2 (Temp corrected) 91 mmHg Arterial Blood HCO3 22 mmol/L (21-28) Arterial Blood Base Excess -3 mmol/L (-3-3) FiO2 30 Laboratory Tests Test 04/18/19 17:20 04/19/19 05:10 04/19/19 05:18 04/19/19 08:35 O2 Saturation 97 % (92-99) 97 % (92-99) Arterial Blood pH 7.38 (7.35-7.45) 7.38 (7.35-7.45) Arterial Blood pCO2 at Patient Temp 37 mmHg (35-46) 39 mmHg (35-46) Arterial Blood pO2 at Patient Temp 88 mmHg (65-108) 99 mmHg (65-108) Arterial Blood HCO3 22 mmol/L (21-28) 22 mmol/L (21-28) Arterial Blood Base Excess -3 mmol/L (-3-3) -3 mmol/L (-3-3) FiO2 30 30 White Blood Count 6.9 x10^3/uL (4.0-11.0) Red Blood Count 3.62 x10^6/uL (3.50-5.40) Hemoglobin 12.5 g/dL (12.0-15.5) Hematocrit 37.5 % (36.0-47.0) Mean Corpuscular Volume 104 fL (79-100) Mean Corpuscular Hemoglobin 35 pg (25-35) Mean Corpuscular Hemoglobin Concent 33 g/dL (31-37) Red Cell Distribution Width 14.3 % (11.5-14.5) Platelet Count 147 x10^3/uL (140-400) Sodium Level 146 mmol/L (136-145) Potassium Level 3.6 mmol/L (3.5-5.1) Chloride Level 112 mmol/L (98-107) Carbon Dioxide Level 28 mmol/L (21-32) Anion Gap 6 (6-14) Blood Urea Nitrogen 29 mg/dL (7-20) Creatinine 0.7 mg/dL (0.6-1.0) Estimated GFR (Cockcroft-Gault) 85.1 Glucose Level 155 mg/dL (70-99) Calcium Level 8.3 mg/dL (8.5-10.1) Magnesium Level 2.1 mg/dL (1.8-2.4) Glucose (Fingerstick) 138 mg/dL (70-99) Arterial Blood pH (Temp corrected) 7.40 Arterial Blood pCO2 (Temp correct) 36 mmHg Arterial Blood pO2 (Temp corrected) 91 mmHg Medications Active Scripts Medications Dose Route/Sig Max Daily Dose Days Date Category No Known Medications Prior To Admisstion (Info) Each 1 Each 1X PRN 04/17/19 Reported Comments CXR 04/18 mild left lung inf Impression . 1. Acute hypoxemic respiratory failure due to AECOPD, self extubated 04/17 2. Acute exacerbation of chronic obstructive pulmonary disease. 3. Clinical Pneumonia, suspect gram-negative, possibly gram-positive. 4. Tobacco dependence. 5. Anxiety disorder Plan . 1. Continue nasal canula, PRN BIPAP, MENTAL STATUS IMPROVING 2. follow clinically 3. Solu-Medrol 4. IV antibiotics. 5. nebs q 4hr, pulmicort 6. TF 7. DVT/ Stress ulcer prophy 8. d/w family 04/18 about advance directives. full code DENISE LEDESMA MD Apr 19, 2019 11:55
[2019-04-19] MEDS: NICOTINE 21MG PATCH. TD SCH (13:35)
[2019-04-19] MEDS: ENOXAPARIN 40 MG/0.4 ML SYRINGE. SQ SCH (13:35)
[2019-04-19] MEDS: ALBUTEROL SULFATE 2.5 MG/3 ML NEBU. NEB PRN (20:43)
[2019-04-19] MEDS ORDERED: amLODIPine BESYLATE 5 MG TABLET PO ONE (21:00)
[2019-04-19] MEDS: FAMOTIDINE 20 MG/2 ML VIAL IVP SCH (21:01)
[2019-04-19] MEDS: OLANZapine 2.5 MG TABLET PO PRN (21:01)
[2019-04-19] MEDS: AZITHROMYCIN 250 MG TABLET. PO SCH (21:02)
--- NOTE | 2019-04-19 21:47 | NUR ---
Vasu notified of swallow study and advised of elevated blood pressure and anxiety. Orders received. Patient able to follow commands. Wheezing on 3LNC after duoneb. PRN albuterol given with some relief. Weak, non-productive cough. IS at bedside. Given pm meal tray. Independently feeds self. Increased lethargy but tolerated partial dinner. Bipap placed, precedex infusing. Daughter called and advised of patient condition and and increased lethargy after activity. Will continue to monitor
[2019-04-20] VITALS (21 sets, daily range): BP systolic 107–163; BP diastolic 47–109
[2019-04-20] MEDS: methylPREDNISolone SOD SUCC PF 40 MG/ML VIAL. IV SCH ×4 (02:22→17:44)
[2019-04-20] MEDS: IV NORMAL SALINE 1000ML BAG 1,000 ML IV SCH (02:23)
[2019-04-20] MEDS: ALBUTEROL SULFATE 2.5 MG/3 ML NEBU. NEB PRN (02:39)
[2019-04-20] MEDS: IPRATRPIUM/ALBUTEROL 0.5/2.5MG 3 ML NEBU. NEB SCH ×6 (03:58→23:49)
[2019-04-20 06:39] LABS: CREATININE 0.8 mg/dL (0.6-1.0); GFR 72.9; POTASSIUM 3.4 mmol/L (3.5-5.1)
[2019-04-20] MEDS: BUDESONIDE 0.5 MG/2 ML NEBU. NEB SCH ×2 (08:13→20:21)
--- NOTE | 2019-04-20 08:28 | RAD ---
EXAM: CHEST ONE VIEW. HISTORY: Respiratory failure. COMPARISON: 04/19/2019. FINDINGS: A frontal view of the chest is obtained. A right internal jugular central venous catheter has its tip in the superior cavoatrial junction. Mild basilar interstitial infiltrates are consistent with mild pulmonary edema. The central pulmonary arteries are prominent. Emphysematous changes are suspected in the apices. There is no pneumothorax. The heart is not enlarged. IMPRESSION: 1. Stable mild pulmonary edema. Electronically signed by: Mychal Noble MD (04/20/2019 8:26 AM) [facility]
[2019-04-20] MEDS ORDERED: amLODIPine BESYLATE 5 MG TABLET PO SCH (09:00)
[2019-04-20] MEDS: cefTRIAXone IV Push 1 GM VIAL. IVP SCH (09:30)
[2019-04-20] MEDS: OLANZapine 2.5 MG TABLET PO PRN (09:30)
[2019-04-20] MEDS: NICOTINE 21MG PATCH. TD SCH (09:31)
[2019-04-20] MEDS: AZITHROMYCIN 250 MG TABLET. PO SCH (09:31)
[2019-04-20] MEDS: POTASSIUM CHLORIDE 20 MEQ TABLET.ER. PO SCH ×3 (09:33→17:40)
[2019-04-20] MEDS: amLODIPine BESYLATE 10 MG TABLET PO SCH (09:44)
--- NOTE | 2019-04-20 10:20 | PN ---
DATE: 04/20/2019 SUBJECTIVE: The patient is resting slightly propped up in bed, in no apparent respiratory distress. She is awake, alert, resting slightly propped up in bed, in no apparent distress. PHYSICAL EXAMINATION: GENERAL: On examining her this morning, she looked well and was clearly in no apparent respiratory distress. No pallor, jaundice, cyanosis or thyromegaly. No jugular venous distention. No lower limb edema. VITAL SIGNS: Her heart rate was 112, blood pressure 143/87, temperature was 98.4, respiratory rate was 37, oxygen saturation was 96% on 3 liters of oxygen. HEAD, EYES, EARS, NOSE AND THROAT: Showed normocephalic, atraumatic. NECK: Supple. HEART: Showed normal first and second heart sounds. No gallop or murmur. CHEST: Showed central trachea, equally reduced expansion. Reduced air entry, vesicular sounds. No crepitation. No rhonchi. ABDOMEN: Distended, soft, nontender. NEUROLOGIC: She is awake, alert, responding appropriately. All cranial nerves intact. She moves extremities without difficulty, although she continued to be extremely debilitated and deconditioned and has nearly fallen yesterday. Her intake was 3100, output was 1330. LABORATORY DATA: As of this morning, her white cell count was 6900, hemoglobin 12.5, hematocrit 37, MCV 104 and platelet count 147,000. Her chemistry showed serum sodium of 147, potassium 3.4, chloride 113, bicarbonate 28, anion gap of 6, BUN 26, creatinine 0.8, estimated GFR was 73 mL per minute. Her glucose 137, calcium was 8. ASSESSMENT: 1. [id number] hypoxic hypercapnic respiratory failure for which she was intubated and mechanically ventilated; however, she self-extubated herself. 2. Chronic obstructive pulmonary disease exacerbation. 3. Probable community-acquired pneumonia. 4. Tobacco use disorder. PLAN: To continue with IV antibiotic. Continue with Lovenox for DVT prophylaxis. Continue with bronchodilators and steroids. Continue with physical and occupational therapy. She has hypokalemia and hypernatremia. I will increase her amlodipine to 5 mg and started on potassium supplement. I will discontinue IV fluids. MELANI SANTOS MD DR: JOSEPH/rajinder JOB#: [id number] / [id number]
--- NOTE | 2019-04-20 11:02 | PDOC ---
PULMONARY PROGRESS NOTES Subjective self extubated 04/17 afternoon continues to improve, remains on N/C Vitals Vital Signs Date Time Temp Pulse Resp B/P (MAP) Pulse Ox O2 Delivery O2 Flow Rate FiO2 04/20/19 10:00 125 29 139/86 (103) 97 Nasal Cannula 3.0 04/20/19 08:00 98.4 98.4 ROS: No Nausea, No Chest Pain, No Abdominal Pain, No Increase Cough General: Alert Cardiovascular: S1, S2 Abdomen: Soft, Non-tender Extremities: No Edema Skin: Warm, Dry Labs Laboratory Tests Test 04/18/19 17:20 04/19/19 05:10 04/19/19 05:18 04/19/19 08:35 O2 Saturation 97 % (92-99) 97 % (92-99) Arterial Blood pH 7.38 (7.35-7.45) 7.38 (7.35-7.45) Arterial Blood pCO2 at Patient Temp 37 mmHg (35-46) 39 mmHg (35-46) Arterial Blood pO2 at Patient Temp 88 mmHg (65-108) 99 mmHg (65-108) Arterial Blood HCO3 22 mmol/L (21-28) 22 mmol/L (21-28) Arterial Blood Base Excess -3 mmol/L (-3-3) -3 mmol/L (-3-3) FiO2 30 30 White Blood Count 6.9 x10^3/uL (4.0-11.0) Red Blood Count 3.62 x10^6/uL (3.50-5.40) Hemoglobin 12.5 g/dL (12.0-15.5) Hematocrit 37.5 % (36.0-47.0) Mean Corpuscular Volume 104 fL (79-100) Mean Corpuscular Hemoglobin 35 pg (25-35) Mean Corpuscular Hemoglobin Concent 33 g/dL (31-37) Red Cell Distribution Width 14.3 % (11.5-14.5) Platelet Count 147 x10^3/uL (140-400) Sodium Level 146 mmol/L (136-145) Potassium Level 3.6 mmol/L (3.5-5.1) Chloride Level 112 mmol/L (98-107) Carbon Dioxide Level 28 mmol/L (21-32) Anion Gap 6 (6-14) Blood Urea Nitrogen 29 mg/dL (7-20) Creatinine 0.7 mg/dL (0.6-1.0) Estimated GFR (Cockcroft-Gault) 85.1 Glucose Level 155 mg/dL (70-99) Calcium Level 8.3 mg/dL (8.5-10.1) Magnesium Level 2.1 mg/dL (1.8-2.4) Glucose (Fingerstick) 138 mg/dL (70-99) Arterial Blood pH (Temp corrected) 7.40 Arterial Blood pCO2 (Temp correct) 36 mmHg Arterial Blood pO2 (Temp corrected) 91 mmHg Test 04/20/19 06:00 Sodium Level 147 mmol/L (136-145) Potassium Level 3.4 mmol/L (3.5-5.1) Chloride Level 113 mmol/L (98-107) Carbon Dioxide Level 28 mmol/L (21-32) Anion Gap 6 (6-14) Blood Urea Nitrogen 26 mg/dL (7-20) Creatinine 0.8 mg/dL (0.6-1.0) Estimated GFR (Cockcroft-Gault) 72.9 Glucose Level 137 mg/dL (70-99) Calcium Level 8.0 mg/dL (8.5-10.1) Laboratory Tests Test 04/20/19 06:00 Sodium Level 147 mmol/L (136-145) Potassium Level 3.4 mmol/L (3.5-5.1) Chloride Level 113 mmol/L (98-107) Carbon Dioxide Level 28 mmol/L (21-32) Anion Gap 6 (6-14) Blood Urea Nitrogen 26 mg/dL (7-20) Creatinine 0.8 mg/dL (0.6-1.0) Estimated GFR (Cockcroft-Gault) 72.9 Glucose Level 137 mg/dL (70-99) Calcium Level 8.0 mg/dL (8.5-10.1) Medications Active Scripts Medications Dose Route/Sig Max Daily Dose Days Date Category No Known Medications Prior To Admisstion (Info) Each 1 Each 1X PRN 04/17/19 Reported Comments CXR 04/20 IMPRESSION: 1. Stable mild pulmonary edema. Impression . 1. Acute hypoxemic respiratory failure due to AECOPD, self extubated 04/17 2. Acute exacerbation of chronic obstructive pulmonary disease. 3. Clinical Pneumonia, suspect gram-negative, possibly gram-positive. 4. Tobacco dependence. 5. Anxiety disorder Plan . 1. Continue nasal canula, 2. follow clinically 3. Solu-Medrol wit htaper 4. IV antibiotics: rocephin/azithro 5. nebs q 4hr, pulmicort 6. DVT/ Stress ulcer proph 8. D/W RN --- will need at least one more day in ICU DENISE LEDESMA MD Apr 20, 2019 11:02
[2019-04-20] MEDS: ENOXAPARIN 40 MG/0.4 ML SYRINGE. SQ SCH (14:36)
[2019-04-20] MEDS: FAMOTIDINE 20 MG/2 ML VIAL IVP SCH (20:54)
[2019-04-21] VITALS (24 sets, daily range): BP systolic 122–156; BP diastolic 79–101
[2019-04-21] MEDS: methylPREDNISolone SOD SUCC PF 40 MG/ML VIAL. IV SCH ×5 (00:25→23:51)
[2019-04-21] MEDS: IPRATRPIUM/ALBUTEROL 0.5/2.5MG 3 ML NEBU. NEB SCH ×5 (04:21→20:39)
[2019-04-21 06:48] LABS: CALCIUM 8.4 mg/dL (8.5-10.1); CREATININE 0.8 mg/dL (0.6-1.0); GFR 72.9; POTASSIUM 4.4 mmol/L (3.5-5.1)
[2019-04-21] MEDS: BUDESONIDE 0.5 MG/2 ML NEBU. NEB SCH ×2 (07:59→20:39)
[2019-04-21] MEDS: NICOTINE 21MG PATCH. TD SCH (08:18)
[2019-04-21] MEDS: cefTRIAXone IV Push 1 GM VIAL. IVP SCH (08:18)
[2019-04-21] MEDS: POTASSIUM CHLORIDE 20 MEQ TABLET.ER. PO SCH ×3 (08:18→17:20)
[2019-04-21] MEDS: AZITHROMYCIN 250 MG TABLET. PO SCH (08:19)
[2019-04-21] MEDS: amLODIPine BESYLATE 10 MG TABLET PO SCH (08:19)
[2019-04-21] MEDS ORDERED: methylPREDNISolone SOD SUCC PF 40 MG/ML VIAL. IV SCH (08:30)
--- NOTE | 2019-04-21 09:24 | RAD ---
EXAM: CHEST 1 VIEW History: Respiratory failure COMPARISON: 04/20/2019 TECHNIQUE: Single portable radiograph of the chest FINDINGS: Mild cardiomegaly. Mild prominent appearing bilateral interstitial lung markings likely congestive changes or interstitial infiltrates. Right internal jugular line is unchanged . Minimal bibasilar lung airspace opacities likely atelectasis or infiltrates. IMPRESSION: 1. Mild congestive changes unchanged. Electronically signed by: Jayro Espinosa MD (04/21/2019 9:21 AM) [facility]
[2019-04-21] MEDS ORDERED: MAGNESIUM SULFATE 1GM 100 ML IV ONE (10:45)
--- NOTE | 2019-04-21 10:55 | PDOC ---
PULMONARY PROGRESS NOTES Subjective self extubated 04/17 afternoon continues to improve, remains on N/C increased wheezing today Vitals Vital Signs Date Time Temp Pulse Resp B/P (MAP) Pulse Ox O2 Delivery O2 Flow Rate FiO2 04/21/19 10:00 104 26 122/90 (101) 99 Nasal Cannula 3.0 04/21/19 07:00 98.4 98.4 ROS: No Nausea, No Chest Pain, No Abdominal Pain, No Increase Cough General: Alert Lungs: Wheezing Cardiovascular: S1, S2 Abdomen: Soft, Non-tender Extremities: No Edema Skin: Warm, Dry Labs Laboratory Tests Test 04/20/19 06:00 04/21/19 06:20 Sodium Level 147 mmol/L (136-145) 147 mmol/L (136-145) Potassium Level 3.4 mmol/L (3.5-5.1) 4.4 mmol/L (3.5-5.1) Chloride Level 113 mmol/L (98-107) 111 mmol/L (98-107) Carbon Dioxide Level 28 mmol/L (21-32) 34 mmol/L (21-32) Anion Gap 6 (6-14) 2 (6-14) Blood Urea Nitrogen 26 mg/dL (7-20) 22 mg/dL (7-20) Creatinine 0.8 mg/dL (0.6-1.0) 0.8 mg/dL (0.6-1.0) Estimated GFR (Cockcroft-Gault) 72.9 72.9 Glucose Level 137 mg/dL (70-99) 141 mg/dL (70-99) Calcium Level 8.0 mg/dL (8.5-10.1) 8.4 mg/dL (8.5-10.1) Laboratory Tests Test 04/21/19 06:20 Sodium Level 147 mmol/L (136-145) Potassium Level 4.4 mmol/L (3.5-5.1) Chloride Level 111 mmol/L (98-107) Carbon Dioxide Level 34 mmol/L (21-32) Anion Gap 2 (6-14) Blood Urea Nitrogen 22 mg/dL (7-20) Creatinine 0.8 mg/dL (0.6-1.0) Estimated GFR (Cockcroft-Gault) 72.9 Glucose Level 141 mg/dL (70-99) Calcium Level 8.4 mg/dL (8.5-10.1) Medications Active Scripts Medications Dose Route/Sig Max Daily Dose Days Date Category No Known Medications Prior To Admisstion (Info) Each 1 Each 1X PRN 04/17/19 Reported Comments CXR 04/20 IMPRESSION: 1. Stable mild pulmonary edema. Impression . 1. Acute hypoxemic respiratory failure due to AECOPD, self extubated 04/17 2. Acute exacerbation of chronic obstructive pulmonary disease./ bronchospasm 3. Clinical Pneumonia, suspect gram-negative, possibly gram-positive. 4. Tobacco dependence. 5. Anxiety disorder Plan . 1. Continue nasal canula, 2. follow clinically 3. Solu-Medrol, not taper at this time pt. has ongoing wheezing 4. IV antibiotics: rocephin/azithro 5. nebs q 4hr, pulmicort 6. DVT/ Stress ulcer proph 8. D/W RN ---Can transfer out of ICU to CVC if wheezing is improved DENISE LEDESMA MD Apr 21, 2019 10:55
--- NOTE | 2019-04-21 11:36 | PN ---
DATE: 04/21/2019 SUBJECTIVE: The patient was sitting up in her bed comfortably in no apparent distress, awake, alert. On questioning her, she denied any complaint except that she wants to have a drink of water. Denied any chest pain, shortness of breath. PHYSICAL EXAMINATION: GENERAL: When I examined her, she looked somewhat pale, not jaundiced or cyanosed. No lymphadenopathy, no thyromegaly. No jugular venous distention. No limb edema. VITAL SIGNS: Her heart rate was 98, blood pressure 148/94, temperature was 98.4, respiratory rate was 26 and oxygen saturation was 98% on 3 liters of oxygen by nasal cannula. HEAD, EYES, EARS, NOSE AND THROAT: Showed normocephalic, atraumatic. NECK: Supple. HEART: Showed normal first and second heart sounds. No gallop, rub or murmur. CHEST: Shows central trachea, equally reduced expansion, reduced air entry, vesicular sounds. I could not really appreciate any crepitation or rhonchi. ABDOMEN: Slightly distended, soft, nontender. NEUROLOGIC: She is awake, alert, responding appropriately. All cranial nerves intact. She moves extremities without difficulty. Her intake over the last 24 hours was 3000, output was 805. LABORATORY DATA: Her lab work this morning showed her serum sodium to be 147, potassium 4.4, chloride 111, bicarbonate 34, anion gap of 2, BUN 22, creatinine was 0.8, estimated GFR was 73 mL per minute. Her glucose 141, calcium was 8.4. ASSESSMENT: 1. Acute on chronic hypoxic hypercapnic respiratory failure for which she was intubated and mechanically ventilated; however, she self-extubated herself on 04/17/2019. 2. Chronic obstructive pulmonary disease exacerbation. 3. Community-acquired pneumonia. 4. Tobacco use disorder. 5. Hypertension. 6. ____ agitation. PLAN: To continue with antibiotic. Continue with tapering course of steroids. I will cut down her prednisone to 60 mg every 8 hours. Meanwhile, continue nebulized albuterol and Atrovent. Continue with physical and occupational therapy. The patient may transfer to CVICU if it is needed here. MELANI SANTOS MD DR: JOSEPH/rajinder JOB#: [id number] / [id number]
[2019-04-21] MEDS ORDERED: POTASSIUM BICARB 20 MEQ EFFERVESCENT TABLET. PO ONE ×2 (12:45)
[2019-04-21] MEDS: ENOXAPARIN 40 MG/0.4 ML SYRINGE. SQ SCH (13:02)
--- NOTE | 2019-04-21 14:00 | NUR ---
Patient being kept in the ICU d/t continued wheezing after Magnesium, breathing treatments, solumedrol per verbal instructions from Dr. Diaz. Instructed patient on the use of the IS and to use hourly with patient stated understanding. Deep breathing and cough allow for increased air movement auscultated but wheezing not improving.
[2019-04-21] MEDS: LACTOBACILLUS RHAMNOSUS GG 1 CAPSULE. PO SCH (21:05)
[2019-04-21] MEDS: FAMOTIDINE 20 MG/2 ML VIAL IVP SCH (21:05)
[2019-04-22] VITALS (24 sets, daily range): BP systolic 109–159; BP diastolic 72–109
[2019-04-22] MEDS: IPRATRPIUM/ALBUTEROL 0.5/2.5MG 3 ML NEBU. NEB SCH ×7 (00:09→23:35)
[2019-04-22] MEDS: methylPREDNISolone SOD SUCC PF 40 MG/ML VIAL. IV SCH ×4 (05:42→23:55)
[2019-04-22 06:31] LABS: HEMATOCRIT 34.3 % (36.0-47.0); HEMOGLOBIN 11.6 g/dL (12.0-15.5); RED BLOOD COUNT 3.29 x10^6/uL (3.50-5.40); RED CELL DISTRIBUTION WIDTH 14.6 % (11.5-14.5); WHITE BLOOD COUNT 6.1 x10^3/uL (4.0-11.0)
[2019-04-22 06:42] LABS: CALCIUM 8.2 mg/dL (8.5-10.1); CREATININE 0.7 mg/dL (0.6-1.0); GFR 85.1; POTASSIUM 4.6 mmol/L (3.5-5.1)
[2019-04-22] MEDS: OLANZapine 2.5 MG TABLET PO PRN (07:09)
[2019-04-22] MEDS: cefTRIAXone IV Push 1 GM VIAL. IVP SCH (07:40)
[2019-04-22] MEDS: POTASSIUM CHLORIDE 20 MEQ TABLET.ER. PO SCH ×3 (07:40→18:06)
[2019-04-22] MEDS: BUDESONIDE 0.5 MG/2 ML NEBU. NEB SCH ×2 (08:06→19:33)
--- NOTE | 2019-04-22 08:17 | RAD ---
EXAM: CHEST 1 VIEW History: Respiratory failure COMPARISON: 04/21/2019 TECHNIQUE: Single portable radiograph of the chest FINDINGS: Mild cardiomegaly. Right internal jugular line is unchanged. Mild prominent appearing bilateral interstitial lung markings. Trace right pleural effusion. IMPRESSION: Mild increase in congestive changes. Electronically signed by: Jayro Espinosa MD (04/22/2019 8:14 AM) [facility]
[2019-04-22] MEDS: amLODIPine BESYLATE 10 MG TABLET PO SCH (09:03)
[2019-04-22] MEDS: LACTOBACILLUS RHAMNOSUS GG 1 CAPSULE. PO SCH ×2 (09:03→21:01)
[2019-04-22] MEDS: AZITHROMYCIN 250 MG TABLET. PO SCH (09:03)
[2019-04-22] MEDS: NICOTINE 21MG PATCH. TD SCH (09:04)
[2019-04-22] MEDS ORDERED: FUROSEMIDE 40 MG/4 ML VIAL. IVP ONE (11:00)
--- NOTE | 2019-04-22 11:02 | PDOC ---
PULMONARY PROGRESS NOTES Subjective self extubated 04/17 afternoon continues to improve, remains on N/C continues to have wheezing today Up to chair today Vitals Vital Signs Date Time Temp Pulse Resp B/P (MAP) Pulse Ox O2 Delivery O2 Flow Rate FiO2 04/22/19 10:25 96 Nasal Cannula 2.0 04/22/19 09:03 114 149/96 04/22/19 09:00 26 04/22/19 08:00 98.5 98.5 ROS: No Nausea, No Chest Pain, No Abdominal Pain, No Increase Cough General: Alert Lungs: Wheezing Cardiovascular: S1, S2 Abdomen: Soft, Non-tender Extremities: No Edema Skin: Warm, Dry Labs Laboratory Tests Test 04/21/19 06:20 04/22/19 05:45 Sodium Level 147 mmol/L (136-145) 150 mmol/L (136-145) Potassium Level 4.4 mmol/L (3.5-5.1) 4.6 mmol/L (3.5-5.1) Chloride Level 111 mmol/L (98-107) 112 mmol/L (98-107) Carbon Dioxide Level 34 mmol/L (21-32) 37 mmol/L (21-32) Anion Gap 2 (6-14) 1 (6-14) Blood Urea Nitrogen 22 mg/dL (7-20) 24 mg/dL (7-20) Creatinine 0.8 mg/dL (0.6-1.0) 0.7 mg/dL (0.6-1.0) Estimated GFR (Cockcroft-Gault) 72.9 85.1 Glucose Level 141 mg/dL (70-99) 148 mg/dL (70-99) Calcium Level 8.4 mg/dL (8.5-10.1) 8.2 mg/dL (8.5-10.1) White Blood Count 6.1 x10^3/uL (4.0-11.0) Red Blood Count 3.29 x10^6/uL (3.50-5.40) Hemoglobin 11.6 g/dL (12.0-15.5) Hematocrit 34.3 % (36.0-47.0) Mean Corpuscular Volume 104 fL (79-100) Mean Corpuscular Hemoglobin 35 pg (25-35) Mean Corpuscular Hemoglobin Concent 34 g/dL (31-37) Red Cell Distribution Width 14.6 % (11.5-14.5) Platelet Count 124 x10^3/uL (140-400) Laboratory Tests Test 04/22/19 05:45 White Blood Count 6.1 x10^3/uL (4.0-11.0) Red Blood Count 3.29 x10^6/uL (3.50-5.40) Hemoglobin 11.6 g/dL (12.0-15.5) Hematocrit 34.3 % (36.0-47.0) Mean Corpuscular Volume 104 fL (79-100) Mean Corpuscular Hemoglobin 35 pg (25-35) Mean Corpuscular Hemoglobin Concent 34 g/dL (31-37) Red Cell Distribution Width 14.6 % (11.5-14.5) Platelet Count 124 x10^3/uL (140-400) Sodium Level 150 mmol/L (136-145) Potassium Level 4.6 mmol/L (3.5-5.1) Chloride Level 112 mmol/L (98-107) Carbon Dioxide Level 37 mmol/L (21-32) Anion Gap 1 (6-14) Blood Urea Nitrogen 24 mg/dL (7-20) Creatinine 0.7 mg/dL (0.6-1.0) Estimated GFR (Cockcroft-Gault) 85.1 Glucose Level 148 mg/dL (70-99) Calcium Level 8.2 mg/dL (8.5-10.1) Medications Active Scripts Medications Dose Route/Sig Max Daily Dose Days Date Category No Known Medications Prior To Admisstion (Info) Each 1 Each 1X PRN 04/17/19 Reported Comments CXR 04/20 IMPRESSION: 1. Stable mild pulmonary edema. Impression . 1. Acute hypoxemic respiratory failure due to AECOPD, self extubated 04/17 2. Acute exacerbation of chronic obstructive pulmonary disease./ bronchospasm, possible related to CHF 3. Clinical Pneumonia, suspect gram-negative, possibly gram-positive. 4. Tobacco dependence. 5. Anxiety disorder 6. Bilateral LE edema/pulm. edema CXR 04/22/19 IMPRESSION: Mild increase in congestive changes. Plan . 1. Continue nasal canula, 2. Lasix X1 , likely CHF contributing to wheezing 3. Solu-Medrol, not taper at this time pt. has ongoing wheezing 4. IV antibiotics: rocephin/azithro 5. nebs q 4hr, pulmicort 6. DVT/ Stress ulcer proph 8. D/W RN --- DENISE LEDESMA MD Apr 22, 2019 11:02
[2019-04-22] MEDS: ENOXAPARIN 40 MG/0.4 ML SYRINGE. SQ SCH (14:18)
--- NOTE | 2019-04-22 20:08 | PN ---
DATE: 04/22/2019 SUBJECTIVE: The patient is sitting up in her recliner, no apparent respiratory distress. She continued to have cough, complaining of shortness of breath. PHYSICAL EXAMINATION: GENERAL: When I examined her this morning, she was somewhat pale, but no jaundice, cyanosis, or thyromegaly. No jugular venous distension. No lower limb edema. VITAL SIGNS: Her heart rate was 104, blood pressure was 140/94, temperature was 97.9, respiratory rate 20 and oxygen saturation was 96% on 2 liters of oxygen. HEAD, EYES, EARS, NOSE AND THROAT: Showed normocephalic, atraumatic. NECK: Supple. CARDIAC: Normal first and second heart sounds. No gallop or murmur. CHEST: Shows central trachea, equally reduced expansion, reduced air entry, vesicular sounds. I could not hear any crepitation or rhonchi. ABDOMEN: Slightly distended, soft, nontender. NEUROLOGIC: She is awake, alert, responding appropriately. All cranial nerves are intact. She moves her extremities without difficulty, although she is mostly bedbound, chair bound. Over the last 24 hours, her intake was 640, output was 1645. LABORATORY DATA: Lab work as of this morning showed a white cell count 6100, hemoglobin 11.6, hematocrit 34, MCV 104 and platelet count 224,000. Her chemistry showed a serum sodium 150, potassium 4.6, chloride 112, bicarbonate 37, anion gap of 1, BUN 24, creatinine 0.7. Her estimated GFR was 85 mL per minute. Her glucose 148, calcium was 8.2. ASSESSMENT: 1. Acute on chronic hypoxic hypercapnic respiratory failure, for which the patient was intubated and mechanically ventilated; however, she self-extubated herself on 04/17/2019. 2. Chronic obstructive pulmonary disease exacerbation. 3. Community-acquired pneumonia. 4. Tobacco use disorder. 5. Hypertension. 6. Hypernatremia. This is worsening. PLAN: To continue with tapering course of steroids. Continue with nebulized albuterol and Atrovent. Continue with antibiotics. Continue with physical and occupational therapy. I would cut her steroids. The patient can be transferred to CVICU. We will continue with all medication. Continue with physical and occupational therapy. MELANI SANTOS MD DR: JOSEPH/rajinder JOB#: [id number] / [id number]
[2019-04-22] MEDS: FAMOTIDINE 20 MG/2 ML VIAL IVP SCH (21:01)
[2019-04-23] VITALS (16 sets, daily range): BP systolic 107–152; BP diastolic 67–101
[2019-04-23] MEDS: IPRATRPIUM/ALBUTEROL 0.5/2.5MG 3 ML NEBU. NEB SCH ×5 (02:57→20:22)
[2019-04-23] MEDS: methylPREDNISolone SOD SUCC PF 40 MG/ML VIAL. IV SCH (06:01)
[2019-04-23 06:39] LABS: CALCIUM 7.9 mg/dL (8.5-10.1); CREATININE 0.7 mg/dL (0.6-1.0); GFR 85.1; POTASSIUM 4.3 mmol/L (3.5-5.1)
[2019-04-23] MEDS: BUDESONIDE 0.5 MG/2 ML NEBU. NEB SCH ×2 (09:17→20:22)
[2019-04-23] MEDS: NICOTINE 21MG PATCH. TD SCH (09:20)
[2019-04-23] MEDS: POTASSIUM CHLORIDE 20 MEQ TABLET.ER. PO SCH ×3 (09:21→17:50)
[2019-04-23] MEDS: AZITHROMYCIN 250 MG TABLET. PO SCH (09:21)
[2019-04-23] MEDS: amLODIPine BESYLATE 10 MG TABLET PO SCH (09:21)
[2019-04-23] MEDS: cefTRIAXone IV Push 1 GM VIAL. IVP SCH (09:21)
[2019-04-23] MEDS: LACTOBACILLUS RHAMNOSUS GG 1 CAPSULE. PO SCH ×2 (09:23→20:57)
--- NOTE | 2019-04-23 09:28 | PDOC ---
PULMONARY PROGRESS NOTES Subjective self extubated 04/17 afternoon NO COMPLAINTS UP IN CHAIR Vitals Vital Signs Date Time Temp Pulse Resp B/P (MAP) Pulse Ox O2 Delivery O2 Flow Rate FiO2 04/23/19 09:21 85 130/81 04/23/19 09:14 96 Nasal Cannula 2.0 04/23/19 09:03 21 04/23/19 07:07 97.8 97.8 ROS: No Nausea, No Chest Pain, No Abdominal Pain, No Increase Cough General: Alert Lungs: Wheezing Cardiovascular: S1, S2 Abdomen: Soft, Non-tender Extremities: No Edema Skin: Warm, Dry Labs Laboratory Tests Test 04/22/19 05:45 04/23/19 06:00 White Blood Count 6.1 x10^3/uL (4.0-11.0) Red Blood Count 3.29 x10^6/uL (3.50-5.40) Hemoglobin 11.6 g/dL (12.0-15.5) Hematocrit 34.3 % (36.0-47.0) Mean Corpuscular Volume 104 fL (79-100) Mean Corpuscular Hemoglobin 35 pg (25-35) Mean Corpuscular Hemoglobin Concent 34 g/dL (31-37) Red Cell Distribution Width 14.6 % (11.5-14.5) Platelet Count 124 x10^3/uL (140-400) Sodium Level 150 mmol/L (136-145) 148 mmol/L (136-145) Potassium Level 4.6 mmol/L (3.5-5.1) 4.3 mmol/L (3.5-5.1) Chloride Level 112 mmol/L (98-107) 107 mmol/L (98-107) Carbon Dioxide Level 37 mmol/L (21-32) 40 mmol/L (21-32) Anion Gap 1 (6-14) 1 (6-14) Blood Urea Nitrogen 24 mg/dL (7-20) 24 mg/dL (7-20) Creatinine 0.7 mg/dL (0.6-1.0) 0.7 mg/dL (0.6-1.0) Estimated GFR (Cockcroft-Gault) 85.1 85.1 Glucose Level 148 mg/dL (70-99) 150 mg/dL (70-99) Calcium Level 8.2 mg/dL (8.5-10.1) 7.9 mg/dL (8.5-10.1) Laboratory Tests Test 04/23/19 06:00 Sodium Level 148 mmol/L (136-145) Potassium Level 4.3 mmol/L (3.5-5.1) Chloride Level 107 mmol/L (98-107) Carbon Dioxide Level 40 mmol/L (21-32) Anion Gap 1 (6-14) Blood Urea Nitrogen 24 mg/dL (7-20) Creatinine 0.7 mg/dL (0.6-1.0) Estimated GFR (Cockcroft-Gault) 85.1 Glucose Level 150 mg/dL (70-99) Calcium Level 7.9 mg/dL (8.5-10.1) Medications Active Scripts Medications Dose Route/Sig Max Daily Dose Days Date Category No Known Medications Prior To Admisstion (Info) Each 1 Each MC 1X PRN 04/17/19 Reported Comments CXR 04/20 IMPRESSION: 1. Stable mild pulmonary edema. Impression . 1. Acute hypoxemic respiratory failure due to AECOPD, self extubated 04/17 2. Acute exacerbation of chronic obstructive pulmonary disease./ bronchospasm, possible related to CHF 3. Clinical Pneumonia, suspect gram-negative, possibly gram-positive. 4. Tobacco dependence. 5. Anxiety disorder 6. Bilateral LE edema/pulm. edema Plan . TRANSFER OUT OF ICU 02 STEROIDS ANTIBX MILY DURAN MD Apr 23, 2019 09:28
--- NOTE | 2019-04-23 10:27 | CARD ---
MR#: [id number] Date of Study: 04/23/2019 Ordering Physician: DENISE LEDESMA, Referring Physician: DENISE LEDESMA, Tech: Eliane Julio APPROVED REPORT EXAM: Two-dimensional and M-mode echocardiogram with Doppler and color Doppler. Other Information Quality : AverageHR: 93bpm Technically limited study due to body habitus. INDICATION Dyspnea Edema RISK FACTORS Smoking 2D DIMENSIONS RVDd2.8 (2.9-3.5cm)Left Atrium(2D)3.0 (1.6-4.0cm) IVSd0.8 (0.7-1.1cm)Aortic Root(2D)2.8 (2.0-3.7cm) LVDd4.5 (3.9-5.9cm)LVOT Diameter1.8 (1.8-2.4cm) PWd1.1 (0.7-1.1cm)LVDs3.6 (2.5-4.0cm) FS (%) 19.3 %SV36.2 ml LVEF(%)39.9 (>50%) Aortic Valve AoV Peak Abdon.99.3cm/sAoV VTI20.8cm AO Peak GR.3.9mmHgLVOT VTI 11.02cm AO Mean GR.2mmHg Mitral Valve MV E Ozopdcmk03.7cm/sMV E Peak Gr.88mmHg MV DECEL [id number] A Pflgjzgf67.4cm/s MV E Mean Gr.1mmHgE/A Ratio1.3 TDI Lateral E' P. V4.74cm/sMedial E' P. V4.18cm/s E/Lateral E'15.1E/Medial E'17.2 Tricuspid Valve TR P. Mlocmzfo184pi/sRAP KDPUWGLL0vwLc TR Peak Gr.89abBcBEKE54zmVu Pulmonary Vein S1 Bdgchftj83.4cm/sS2 Fgecsgxg61.84cm/s D2 Naarbsya71.8cm/sPVa zojwxgpi552qcmg LEFT VENTRICLE The left ventricle is normal size. There is borderline to mild concentric left ventricular hypertroph y. The left ventricular systolic function is moderately decreaed. EF 40% The septum and anterior wall are moderately hypokinetic. Technically limited images precludes accurate wall motion assessment. Tr ansmitral Doppler flow pattern is Grade II-pseudonormal filling dynamics. RIGHT VENTRICLE The right ventricle is normal size. There is normal right ventricular wall thickness. The right ventr icular systolic function is normal. ATRIA The left atrium size is normal. The right atrium size is normal. The interatrial septum is intact wit h no evidence for an atrial septal defect or patent foramen ovale as noted on 2-D or Doppler imaging. AORTIC VALVE Not well visualized. Doppler and Color Flow revealed no significant aortic regurgitation. There is no significant aortic valvular stenosis. MITRAL VALVE Not well visualized. There is no evidence of mitral valve prolapse. There is no mitral valve stenosis . Doppler and Color-flow revealed trace to mild mitral regurgitation. TRICUSPID VALVE The tricuspid valve is not well visualized. Doppler and Color Flow revealed mild tricuspid regurgitat ion with an estimated PAP of 63 mmHg. There is moderate pulmonary hypertension. There is no tricuspid valve prolapse or vegetation. PULMONIC VALVE The pulmonic valve is not well visualized. Doppler and Color Flow revealed no pulmonic valvular regur gitation. There is no pulmonic valvular stenosis. GREAT VESSELS The aortic root is normal in size. The IVC is normal in size and collapses >50% with inspiration. PERICARDIAL EFFUSION There is no evidence of significant pericardial effusion. Critical Notification Critical Value: No <Conclusion> The left ventricular systolic function is moderately decreaed. EF 40% The septum and anterior wall are moderately hypokinetic. Technically limited images precludes accurat e wall motion assessment. Doppler and Color Flow revealed mild tricuspid regurgitation with an estimated PAP of 63 mmHg. There is moderate pulmonary hypertension. Signed by : Waldemar Claudio, Electronically Approved : 04/23/2019 10:27:11
[2019-04-23] MEDS ORDERED: BARIUM SULFATE 40% (APPLE) 148 GM PWD. PO ONE (10:30)
--- NOTE | 2019-04-23 12:19 | PN ---
DATE: 04/23/2019 SUBJECTIVE: The patient is sitting comfortably in her recliner, in no apparent distress, awake, alert. On questioning her, denied any complaint. Nursing staff stated that she has video swallowing evaluation scheduled this afternoon. PHYSICAL EXAMINATION: GENERAL: When I examined her, she looked pale, but no jaundice, cyanosis or thyromegaly. No jugular venous distention, but mild bilateral lower limb edema. VITAL SIGNS: Her heart rate was 104, blood pressure 122/77, temperature was 98.1, respiratory rate 31 and oxygen saturation was 95% on 2 liters of oxygen. HEAD, EYES, EARS, NOSE AND THROAT: Showed normocephalic, atraumatic. NECK: Supple. CARDIAC: Normal first and second heart sounds. No gallop or murmur. CHEST: Clear to auscultation. There is a central trachea, reduced expansion, reduced air entry, vesicular sounds. I could not really appreciate any crepitation or rhonchi. ABDOMEN: Distended, soft, nontender. NEUROLOGIC: She is awake, alert, responding appropriately. All cranial nerves are intact. She moves extremities without difficulty. She normally ambulates with a walker. LABORATORY DATA: Showed a white cell count 6100, hemoglobin 11.6, hematocrit 34, MCV 104 and platelet count 124,000. Her chemistry showed a serum sodium of 148, potassium 4.3, chloride 107, bicarbonate 40, anion gap 1, BUN 24, creatinine 0.7, estimated GFR was 85 mL per minute. Her glucose 150, calcium was 7.9. ASSESSMENT: 1. Acute on chronic hypoxic hypercapnic respiratory failure for which the patient was intubated and mechanically ventilated; however, she self-extubated herself on 04/17. 2. Chronic obstructive pulmonary disease exacerbation. 3. Community-acquired pneumonia. 4. Tobacco use disorder. 5. Hypertension. 6. Hypernatremia. This is improving. PLAN: Continue with nebulized albuterol and Atrovent. Continue with antibiotic. Continue with tapering course of steroids. Continue physical and occupational therapy. The patient can be transferred to the floor to start the process of physical and occupational therapy as well as speech therapy. MELANI SANTOS MD DR: JOSEPH/rajinder JOB#: [id number] / [id number]
[2019-04-23] MEDS: ENOXAPARIN 40 MG/0.4 ML SYRINGE. SQ SCH (12:40)
--- NOTE | 2019-04-23 14:43 | RAD ---
Examination: VIDEO SWALLOW STUDY History: Dysphagia Comparison/Correlation: None Findings: Fluoroscopy was utilized for 1.5 minutes for a video swallow exam. No images acquired. Thin liquid, thick liquid, paste, and cracker coated forms of barium were utilized. Oral pharyngeal motility is normal. Oral bolus formation is adequate. No aspiration or penetration. No significant residuals. Delay in transit of contrast within the esophagus is identified. Retention of contrast within the esophagus is noted for prolonged period of time during the exam. Impression: No aspiration or penetration. Delayed transit of the administered substances within the esophagus. Dedicated esophagram examination possibly with upper GI series may be performed for further assessment if clinically warranted. Electronically signed by: Rubio Hameed MD (04/23/2019 2:40 PM) [facility]
[2019-04-23] MEDS ORDERED: ACETAMINOPHEN 325 MG TABLET. PO PRN (20:30)
[2019-04-23] MEDS: FAMOTIDINE 20 MG/2 ML VIAL IVP SCH (20:57)
[2019-04-24] MEDS: IPRATRPIUM/ALBUTEROL 0.5/2.5MG 3 ML NEBU. NEB SCH ×6 (00:12→19:14)
[2019-04-24 03:00] VITALS: BP 105/68
[2019-04-24 07:00] VITALS: BP 127/81
[2019-04-24] MEDS: BUDESONIDE 0.5 MG/2 ML NEBU. NEB SCH ×2 (08:25→19:14)
--- NOTE | 2019-04-24 08:46 | PDOC ---
PULMONARY PROGRESS NOTES Subjective self extubated 04/17 afternoon NO COMPLAINTS UP IN CHAIR Vitals Vital Signs Date Time Temp Pulse Resp B/P (MAP) Pulse Ox O2 Delivery O2 Flow Rate FiO2 04/24/19 08:27 98 Nasal Cannula 2.0 04/24/19 03:00 98.8 68 16 105/68 (80) 98.8 ROS: No Nausea, No Chest Pain, No Abdominal Pain, No Increase Cough General: Alert Lungs: Wheezing Cardiovascular: S1, S2 Abdomen: Soft, Non-tender Extremities: No Edema Skin: Warm, Dry Labs Laboratory Tests Test 04/23/19 06:00 Sodium Level 148 mmol/L (136-145) Potassium Level 4.3 mmol/L (3.5-5.1) Chloride Level 107 mmol/L (98-107) Carbon Dioxide Level 40 mmol/L (21-32) Anion Gap 1 (6-14) Blood Urea Nitrogen 24 mg/dL (7-20) Creatinine 0.7 mg/dL (0.6-1.0) Estimated GFR (Cockcroft-Gault) 85.1 Glucose Level 150 mg/dL (70-99) Calcium Level 7.9 mg/dL (8.5-10.1) Medications Active Scripts Medications Dose Route/Sig Max Daily Dose Days Date Category No Known Medications Prior To Admisstion (Info) Each 1 Each 1X PRN 04/17/19 Reported Comments CXR 04/20 IMPRESSION: 1. Stable mild pulmonary edema. Impression . 1. Acute hypoxemic respiratory failure due to AECOPD, self extubated 04/17 2. Acute exacerbation of chronic obstructive pulmonary disease./ bronchospasm, possible related to CHF 3. Clinical Pneumonia, suspect gram-negative, possibly gram-positive. 4. Tobacco dependence. 5. Anxiety disorder 6. Bilateral LE edema/pulm. edema Plan . TRANSFER OUT OF ICU 02 STEROIDS ANTIBX MILY DURAN MD Apr 24, 2019 08:46
[2019-04-24] MEDS: NICOTINE 21MG PATCH. TD SCH (08:57)
[2019-04-24] MEDS: amLODIPine BESYLATE 10 MG TABLET PO SCH (08:58)
[2019-04-24] MEDS: AZITHROMYCIN 250 MG TABLET. PO SCH (08:59)
[2019-04-24] MEDS: POTASSIUM CHLORIDE 20 MEQ TABLET.ER. PO SCH ×3 (08:59→17:25)
[2019-04-24] MEDS: LACTOBACILLUS RHAMNOSUS GG 1 CAPSULE. PO SCH ×2 (08:59→20:39)
[2019-04-24] MEDS: cefTRIAXone IV Push 1 GM VIAL. IVP SCH (09:00)
[2019-04-24] MEDS: predniSONE 20 MG TABLET PO SCH (09:00)
[2019-04-24] MEDS ORDERED: FUROSEMIDE 20 MG/2 ML VIAL. IVP ONE (10:45)
[2019-04-24 11:00] VITALS: BP 116/80
[2019-04-24] MEDS: ENOXAPARIN 40 MG/0.4 ML SYRINGE. SQ SCH (12:23)
[2019-04-24 13:32] LABS: CALCIUM 8.2 mg/dL (8.5-10.1); CREATININE 0.9 mg/dL (0.6-1.0); GFR 63.7; POTASSIUM 4.3 mmol/L (3.5-5.1)
[2019-04-24 15:00] VITALS: BP 116/76
--- NOTE | 2019-04-24 18:03 | NUR ---
PT SELF REPORTED THAT SHE FELL WITH DAUGHTER IN THE ROOM TODAY WHILE DAUGHTER WAS HELPING HER TO THE BEDSIDE COMMODE, BUT DAUGHTER DID NOT MENTION IT TO ME BEFORE LEAVING THE HOSPITAL. PT STATED THAT SHE WAS FINE AND DIDN'T HURT ANYWHERE, LOOKED OVER KNEES AND ARMS NO NEW SKIN CONCERNS NOTED AT THIS TIME.
[2019-04-24 19:00] VITALS: BP 118/80
[2019-04-24] MEDS: FAMOTIDINE 20 MG/2 ML VIAL IVP SCH (20:40)
[2019-04-24 23:00] VITALS: BP 105/66
--- NOTE | 2019-04-25 00:16 | PN ---
DATE: 04/24/2019 SUBJECTIVE: The patient is sitting up in her bed, in no apparent distress. She is complaining of marked weight gain and swelling of both lower extremities. She claims that she has gained about 5 pounds. Denied any chest pain or shortness of breath. OBJECTIVE: GENERAL: When I examined her, she looked well and was clearly in no apparent respiratory distress, slightly pale. No jaundice, cyanosis or thyromegaly. No jugular venous distention. No lower limb edema. VITAL SIGNS: Her heart rate was 85, blood pressure was 127/81, temperature was 98.1, respiratory rate was 18 and oxygen saturation was 98% on 2 L of oxygen. HEAD, EYES, EARS, NOSE AND THROAT: Normocephalic, atraumatic. NECK: Supple. CARDIAC: Normal first and second heart sounds. No gallop or murmur. CHEST: Shows central trachea, equally reduced expansion, reduced air entry, vesicular breath sounds. I really could not appreciate any crepitation or rhonchi. ABDOMEN: Distended, soft, nontender. NEUROLOGICAL: She is awake, alert, responding appropriately. All cranial nerves are intact. She moves extremities without difficulty, although she is mostly bed bound. Her intake was incompletely recorded, output was 300. LABORATORY DATA: Her most recent white cell count was 6100, hemoglobin 11, hematocrit 34, MCV 104 and platelet count of 124,000. Her serum sodium was 148, potassium 4.3, chloride 107, bicarbonate 40, anion gap of 1, BUN 24, creatinine 0.7, estimated GFR was 85 mL per minute, her glucose 150, calcium was 7.9. ASSESSMENT: 1. Dnwcz-nd-iktaabl hypoxic hypercapnic respiratory failure for which she was intubated on mechanical ventilator; however, she self-extubated herself on 04/17. 2. Chronic obstructive pulmonary disease exacerbation. 3. Community-acquired pneumonia. 4. Tobacco use disorder. 5. Hypertension. 6. Hypernatremia, this is slowly improving. 7. Hypokalemia, improved. PLAN: To continue with the bronchodilator, continue with tapering course of steroids, continue with antibiotics. I have started her on IV Lasix 20 mg once today and then tomorrow. Continue obviously with physical and occupational therapy. MELANI SANTOS MD DR: JOSEPH/rajinder JOB#: [id number] / [id number]
[2019-04-25] MEDS: IPRATRPIUM/ALBUTEROL 0.5/2.5MG 3 ML NEBU. NEB SCH ×7 (04:00→23:58)
[2019-04-25] MEDS: BUDESONIDE 0.5 MG/2 ML NEBU. NEB SCH ×2 (06:13→21:11)
[2019-04-25 07:00] VITALS: BP 107/68
[2019-04-25] MEDS: predniSONE 20 MG TABLET PO SCH (09:37)
[2019-04-25] MEDS: LACTOBACILLUS RHAMNOSUS GG 1 CAPSULE. PO SCH ×2 (09:37→20:24)
[2019-04-25] MEDS: amLODIPine BESYLATE 10 MG TABLET PO SCH (09:37)
[2019-04-25] MEDS: AZITHROMYCIN 250 MG TABLET. PO SCH (09:37)
[2019-04-25] MEDS: FUROSEMIDE 20 MG/2 ML VIAL. IVP SCH (09:38)
[2019-04-25] MEDS: NICOTINE 21MG PATCH. TD SCH (09:38)
[2019-04-25] MEDS: POTASSIUM CHLORIDE 20 MEQ TABLET.ER. PO SCH ×3 (09:38→17:37)
[2019-04-25] MEDS: cefTRIAXone IV Push 1 GM VIAL. IVP SCH (09:40)
[2019-04-25 11:00] VITALS: BP 94/62
[2019-04-25 12:06] LABS: CALCIUM 8.2 mg/dL (8.5-10.1); CREATININE 0.9 mg/dL (0.6-1.0); GFR 63.7; POTASSIUM 4.1 mmol/L (3.5-5.1)
[2019-04-25] MEDS: ENOXAPARIN 40 MG/0.4 ML SYRINGE. SQ SCH (12:45)
[2019-04-25 15:00] VITALS: BP 94/55
[2019-04-25 19:00] VITALS: BP 102/67
[2019-04-25] MEDS: CEFDINIR 300 MG CAPSULE PO SCH (20:24)
[2019-04-25] MEDS: FAMOTIDINE 20 MG/2 ML VIAL IVP SCH (20:24)
--- NOTE | 2019-04-25 20:54 | PN ---
DATE: 04/25/2019 SUBJECTIVE: The patient was sitting comfortably in her bed, in no apparent distress. She is feeling generally much better. She is managing to get out of the bed to bedside commode on her own. Her legs are less swollen. We stopped her Lasix yesterday. PHYSICAL EXAMINATION: GENERAL: When I examined her, she looked pale, but no jaundice, cyanosis, or thyromegaly. No jugular venous distention. No lower limb edema. VITAL SIGNS: Her heart rate was 86, blood pressure 107/68, temperature was 97.8, respiratory rate was 18, and oxygen saturation was 97% on 2 L of oxygen. HEAD, EYES, EARS, NOSE, AND THROAT: Showed normocephalic, atraumatic. NECK: Supple. HEART: Normal first and second heart sounds. No gallop, rub, or murmur. CHEST: Shows central trachea, equal and reduced expansion, reduced air entry, vesicular sounds. I could not really appreciate any crepitation or rhonchi. ABDOMEN: Slightly distended, soft, nontender. NEUROLOGIC: She was awake, alert, responding appropriately. All her cranial nerves are intact. She moves extremities without difficulty. Her intake was 1530, output was 700. LABORATORY DATA: As of this morning, her serum sodium was 136, potassium 4.3, chloride 103, bicarbonate 35, anion gap of 8, BUN 24, creatinine 0.9, estimated GFR was 64 mL per minute. Her glucose 164 and calcium was 8.2. PLAN: To continue with IV Lasix. Continue with tapering course of steroids. Continue with DVT prophylaxis. Continue with bronchodilator. Continue with physical and occupational therapy. Hopefully, we can discharge her home tomorrow. MELANI SANTOS MD DR: JOSEPH/rajinder JOB#: [id number] / [id number]
[2019-04-25 23:00] VITALS: BP 106/72
[2019-04-26 03:00] VITALS: BP 100/66
[2019-04-26] MEDS: IPRATRPIUM/ALBUTEROL 0.5/2.5MG 3 ML NEBU. NEB SCH ×4 (03:38→15:23)
[2019-04-26 07:00] VITALS: BP 101/72
[2019-04-26] MEDS: BUDESONIDE 0.5 MG/2 ML NEBU. NEB SCH (07:37)
[2019-04-26] MEDS: predniSONE 20 MG TABLET PO SCH (08:14)
[2019-04-26] MEDS: AZITHROMYCIN 250 MG TABLET. PO SCH (08:14)
[2019-04-26] MEDS: CEFDINIR 300 MG CAPSULE PO SCH (08:14)
[2019-04-26] MEDS: LACTOBACILLUS RHAMNOSUS GG 1 CAPSULE. PO SCH (08:14)
[2019-04-26] MEDS: POTASSIUM CHLORIDE 20 MEQ TABLET.ER. PO SCH ×2 (08:15→12:06)
[2019-04-26] MEDS: amLODIPine BESYLATE 10 MG TABLET PO SCH (08:16)
[2019-04-26] MEDS: FUROSEMIDE 20 MG/2 ML VIAL. IVP SCH (08:18)
[2019-04-26] MEDS: NICOTINE 21MG PATCH. TD SCH (08:19)
[2019-04-26] MEDS ORDERED: IPRA3AMP29 NEB (10:43)
[2019-04-26] MEDS ORDERED: ALBU2.5V8 IH (10:43)
[2019-04-26 11:00] VITALS: BP 96/73
[2019-04-26] MEDS: ENOXAPARIN 40 MG/0.4 ML SYRINGE. SQ SCH (12:07)
--- NOTE | 2019-04-26 12:29 | DS ---
DATE OF DISCHARGE: 04/26/2019 HOSPITAL COURSE: The patient is a 63-year-old female patient who was originally admitted through the Emergency Room of [facility] to the ICU there with acute hypoxic hypercapnic respiratory failure and arterial blood gases continued to deteriorate, a decision was made to transfer her to [facility]. She was actually intubated at [facility] and was transferred to [facility] ICU where she was continued on mechanical ventilation. She did extubate herself on 04/17 and she gradually improved. She did have some fluid overload, so we treated with IV Lasix, continued antibiotic, initially IV and eventually with oral together with steroids and she did actually very well. She is now able to get out of the bed to bedside commode and walked for short distances using her walker. Unfortunately, she has no insurance and cannot be accepted at any rehab center and therefore, a decision was made to discharge her home to be with her daughter. PHYSICAL EXAMINATION: GENERAL: When I saw her today, she looked well and was clearly in no apparent respiratory distress. No pallor, jaundice, cyanosis or thyromegaly. No jugular venous distention. No lower limb edema. VITAL SIGNS: Her heart rate was 84, blood pressure was 101/72, temperature 97.9, respiratory rate was 18 and oxygen saturation was 96% on 2 liters of oxygen. She was 92% on room air. HEAD, EYES, EARS, NOSE AND THROAT: Showed normocephalic, atraumatic. NECK: Supple. HEART: Showed normal first and second heart sounds. No gallop, rub or murmur. CHEST: Shows central trachea, equally reduced expansion, reduced air entry, vesicular sounds. I could not appreciate any crepitation or rhonchi. ABDOMEN: Slightly distended, soft, nontender. NEUROLOGIC: She is awake, alert, responding appropriately. All cranial nerves intact. She moves extremities without difficulty. She ambulates with a walker. Her intake and output are incompletely recorded. LABORATORY DATA: As of yesterday showed a serum sodium 140, potassium 4.1, chloride 101, bicarbonate 36, anion gap of 3, BUN 17, creatinine 0.9, estimated GFR was 64 mL per minute. Her glucose 116, calcium was 8.2. White cell count was 6100, hemoglobin 11.6, hematocrit 34, MCV 104 and platelet count 224,000. DISCHARGE MEDICATIONS: She was discharged home to continue on albuterol sulfate, ProAir 2 puffs every 4 hours as needed and DuoNeb 0.5-3.5 mg 3 mL by nebulizer 4 times a day, alprazolam 0.5 mg at bedtime for anxiety and insomnia and she was given a prescription for [employer] concentrator to buy it privately. FINAL DISCHARGE DIAGNOSES: 1. Acute on chronic hypoxic hypercapnic respiratory failure for which she was intubated and mechanically ventilated; however, she was self-extubated herself on 04/17/2019. 2. Chronic obstructive pulmonary disease exacerbation. 3. Community-acquired pneumonia. 4. Tobacco use disorder. 5. Hypertension. 6. Hyponatremia, resolved. 7. Hypokalemia, resolved. MELANI SANTOS MD DR: JOSEPH/rajinder JOB#: [id number] / [id number]
[2019-04-26] MEDS: OLANZapine 2.5 MG TABLET PO PRN (13:27)
--- NOTE | 2019-04-26 15:23 | NUR ---
Discharge Note: JANEY HINES [facility] Discharge instructions and discharge home medications reviewed with Patient and a copy given. All questions have been answered and understanding verbalized. The following instructions and handouts were given: Discharge Instructions, Prescriptions, Patient Teaching Materials. Discharge teaching was provided to patient and daughter at the bedside. Discontinued lines and drains: Right TL IJ Central Line removed, pressure held, dressing applied. Patient tolerated well with zero bleeding. Patient discharged to Home with Self-Care via Personal Vehicle
== END 2019-04-26 14:30 | disposition home or self-care (01) | DRG 208 ==
LOC: 1 WEST ICU 11:00 → 5 SOUTH 04-23 16:16
PROVIDERS: ADMIT Internal Medicine; ATTEND Internal Medicine
PROC: 5A1945Z Respiratory Ventilation, 24-96 Consecutive Hours (ICD-10-PCS; principal; 2019-04-15)
PROC: 02HV33Z Insertion of Infusion Device into Superior Vena Cava, Percutaneous Approach (ICD-10-PCS; 2019-04-16)
PROC: 5A09357 Assistance with Respiratory Ventilation, Less than 24 Consecutive Hours, Continuous Positive Airway Pressure (ICD-10-PCS; 2019-04-17)
PROC: 5A09357 Assistance with Respiratory Ventilation, Less than 24 Consecutive Hours, Continuous Positive Airway Pressure (ICD-10-PCS; 2019-04-18)
DX: J96.21 Acute and chronic respiratory failure with hypoxia (principal); J18.9 Pneumonia, unspecified organism; E87.0 Hyperosmolality and hypernatremia; J44.0 Chronic obstructive pulmonary disease with (acute) lower respiratory infection; J44.1 Chronic obstructive pulmonary disease with (acute) exacerbation; J98.11 Atelectasis; E87.1 Hypo-osmolality and hyponatremia; J96.22 Acute and chronic respiratory failure with hypercapnia; E87.6 Hypokalemia; F17.210 Nicotine dependence, cigarettes, uncomplicated; F41.9 Anxiety disorder, unspecified; I10 Essential (primary) hypertension
CPT/HCPCS: 36415; 36600; 71045; 74230; 80048; 80053; 82805; 82962; 83605; 83735; 85027; 87070; 87186; 87205; 93306; 94002; 94003; 94640; 94660; 94760; 99406; J0360; J0696; J1630; J1650; J1940; J2250; J2920; J3010; J3475; J3490; J7030; J7512; J7613; J7620; J7626; Q0144; 92526; 92610; 92611; 97116; 97530; 99285-25; G0378